=== PATIENT | female | born 1985 | race Caucasian/White ===

== ENCOUNTER 2018-06-04 10:03 | Emergency (ER) | payer MEDICAID, OTHER ==
[2018-06-04 11:52] LABS: BASO # 0.1 10^3/uL (0.0-0.2); BASO % 1.1 % (0.0-1.0); EOS # 0.2 10^3/uL (0.0-0.50); EOS % 2.6 % (0.0-3.0); HEMATOCRIT 38.7 % (36.0-47.0); HEMOGLOBIN 12.8 g/dl (12.0-15.5); IMMATURE GRANULOCYTE % 0.2 % (0-3.0); LYMPH # 3.6 10^3/uL (1.5-4.5); LYMPH % 38.2 % (24.0-44.0); MEAN CORPUSCULAR HEMOGLOBIN 30.3 pg (27.0-33.0); MEAN CORPUSCULAR HGB CONC 33.1 g/dl (32.0-36.5); MEAN CORPUSCULAR VOLUME 91.5 fl (80.0-96.0); MONO # 0.6 10^3/uL (0.0-0.8); MONO % 6.6 % (0.0-5.0); NEUTROPHILS # 4.8 10^3/uL (1.8-7.7); NEUTROPHILS % 51.3 % (36.0-66.0); PLATELET COUNT, AUTOMATED 221 10^3/uL (150-450); RED BLOOD COUNT 4.23 10^6/uL (4.00-5.40); RED CELL DISTRIBUTION WIDTH 14.4 % (11.5-14.5); WHITE BLOOD COUNT 9.3 10^3/uL (4.0-10.0)
[2018-06-04 12:13] LABS: CONTROL LINE HCG INT CTR LINE PRESENT; HCG, SERUM QUALITATIVE NEGATIVE (NEGATIVE)
[2018-06-04 12:26] LABS: ALBUMIN 4.2 GM/DL (3.2-5.2); ALBUMIN/GLOBULIN RATIO 1.24 (1.00-1.93); ALKALINE PHOSPHATASE 39 U/L (45-117); ALT/SGPT 70 U/L (12-78); ANION GAP 7 MEQ/L (8-16); AST/SGOT 52 U/L (7-37); BILIRUBIN,TOTAL 0.3 MG/DL (0.2-1.0); BLOOD UREA NITROGEN 13 MG/DL (7-18); CALCIUM LEVEL 9.9 MG/DL (8.5-10.1); CARBON DIOXIDE LEVEL 28 MEQ/L (21-32); CHLORIDE LEVEL 105 MEQ/L (98-107); CREATININE FOR GFR 1.03 MG/DL (0.55-1.30); GLOMERULAR FILTRATION RATE > 60.0 (>60); GLUCOSE, FASTING 96 MG/DL (70-100); POTASSIUM SERUM 4.2 MEQ/L (3.5-5.1); SODIUM LEVEL 140 MEQ/L (136-145); TOTAL PROTEIN 7.6 GM/DL (6.4-8.2)
[2018-06-04 12:57] LABS: HEPATITIS B SURFACE ANTIBODY POSITIVE (POSITIVE)
[2018-06-04 13:07] LABS: HEPATITIS B SURFACE ANTIGEN NEGATIVE (NEGATIVE)
[2018-06-04 13:35] LABS: HEPATITIS C VIRUS ABY INDEX 0.1 INDEX (<0.8)
[2018-06-04 13:36] LABS: HIV 1&2 SCREEN CENTAUR NEGATIVE (NEGATIVE)
[2018-06-04 14:07] LABS: CHLAMYDIA DNA AMPLIFICATION NEGATIVE (NEGATIVE); GC DNA AMPLIFICATION NEGATIVE (NEGATIVE)
[2018-06-04] MEDS: metroNIDAZOLE (FLAGYL) 500 MG TAB PO (14:44)
== END 2018-06-04 14:49 | disposition home or self-care (01) ==
LOC: M ED 10:03
DX: N76.0 Acute vaginitis (principal); F17.200 Nicotine dependence, unspecified, uncomplicated
CPT/HCPCS: 93970

== ENCOUNTER 2018-06-08 22:35 | Emergency (ER) | payer MEDICAID | END 2018-06-09 01:06 | disposition left against medical advice (07) | LOC: M ED 22:35 | DX: Z53.21 Procedure and treatment not carried out due to patient leaving prior to being seen by health care provider (principal) ==

== ENCOUNTER 2018-08-02 03:51 | Inpatient (IN) | payer MEDICAID ==
[2018-08-02 05:06] LABS: HEMOGLOBIN 13.6 g/dl (12.0-15.5); MEAN CORPUSCULAR HEMOGLOBIN 30.4 pg (27.0-33.0); MEAN CORPUSCULAR HGB CONC 33.2 g/dl (32.0-36.5); MEAN CORPUSCULAR VOLUME 91.5 fl (80.0-96.0); PLATELET COUNT, AUTOMATED 227 10^3/uL (150-450); RED BLOOD COUNT 4.48 10^6/uL (4.00-5.40); RED CELL DISTRIBUTION WIDTH 13.2 % (11.5-14.5); WHITE BLOOD COUNT 16.3 10^3/uL (4.0-10.0)
[2018-08-02 05:28] LABS: CONTROL LINE HCG INT CTR LINE PRESENT; HCG, SERUM QUALITATIVE NEGATIVE (NEGATIVE)
[2018-08-02 05:32] LABS: AMPHETAMINES LEVEL URINE NEGATIVE (NEGATIVE); BARBITURATES URINE NEGATIVE (NEGATIVE); BENZODIAZEPINES URINE NEGATIVE (NEGATIVE); CANNABINOIDS URINE NEGATIVE (NEGATIVE); COCAINE METABOLITE URINE NEGATIVE (NEGATIVE); METHADONE URINE NEGATIVE (NEGATIVE); OPIATES URINE NEGATIVE (NEGATIVE); PHENCYCLIDINE URINE NEGATIVE (NEGATIVE)
[2018-08-02 05:40] LABS: ACETAMINOPHEN LEVEL < 2.0 UG/ML (10.0-30.0); ALBUMIN 4.4 GM/DL (3.2-5.2); ALBUMIN/GLOBULIN RATIO 1.42 (1.00-1.93); ALKALINE PHOSPHATASE 46 U/L (45-117); ALT/SGPT 35 U/L (12-78); ANION GAP 6 MEQ/L (8-16); AST/SGOT 22 U/L (7-37); BILIRUBIN,DIRECT 0.1 MG/DL (0.0-0.2); BILIRUBIN,TOTAL 0.5 MG/DL (0.2-1.0); BLOOD UREA NITROGEN 14 MG/DL (7-18); CALCIUM LEVEL 9.3 MG/DL (8.5-10.1); CARBON DIOXIDE LEVEL 29 MEQ/L (21-32); CHLORIDE LEVEL 106 MEQ/L (98-107); CREATININE FOR GFR 1.04 MG/DL (0.55-1.30); ETHYL ALCOHOL (ETHANOL) < 0.003 % (0.000-0.010); GLOMERULAR FILTRATION RATE > 60.0 (>60); GLUCOSE, FASTING 85 MG/DL (70-100); POTASSIUM SERUM 4.1 MEQ/L (3.5-5.1); SALICYLATE LEVEL 3.8 MG/DL (5.0-30.0); SODIUM LEVEL 141 MEQ/L (136-145); TOTAL PROTEIN 7.5 GM/DL (6.4-8.2)
[2018-08-02 05:50] LABS: BASO # 0.1 10^3/uL (0.0-0.2); BASO % 0.6 % (0.0-1.0); EOS # 0.1 10^3/uL (0.0-0.50); EOS % 0.6 % (0.0-3.0); IMMATURE GRANULOCYTE # 0.1 10^3/uL (0-0); IMMATURE GRANULOCYTE % 0.4 % (0-3.0); LYMPH # 2.7 10^3/uL (1.5-4.5); LYMPH % 16.6 % (24.0-44.0); MONO # 1.2 10^3/uL (0.0-0.8); MONO % 7.1 % (0.0-5.0); NEUTROPHILS # 12.4 10^3/uL (1.8-7.7); NEUTROPHILS % 74.7 % (36.0-66.0)
[2018-08-02 05:59] LABS: APPEARANCE, URINE CLEAR (CLEAR); BACTERIA, URINE AUTO 1+ (NEGATIVE); BILIRUBIN, URINE AUTO NEGATIVE (NEGATIVE); BLOOD, URINE BLOOD NEGATIVE (NEGATIVE); COLOR, URINE STRAW (YELLOW); GLUCOSE, URINE (UA) AUTO NEGATIVE (NEGATIVE); KETONE, URINE AUTO NEGATIVE (NEGATIVE); LEUKOCYTE ESTERASE, URINE AUTO NEGATIVE (NEGATIVE); NITRITE, URINE AUTO NEGATIVE (NEGATIVE); PROTEIN, URINE AUTO NEGATIVE (NEGATIVE); RBC, URINE AUTO 1 /HPF (0-3); SPECIFIC GRAVITY URINE AUTO 1.002 (1.002-1.035); SQUAMOUS EPITHELIAL CELL UR AU 1 /HPF (0-6); UROBILINOGEN, URINE AUTO 0.2 mg/dL (0.0-2.0); WBC, URINE AUTO 1 /HPF (0-3)
[2018-08-02 06:16] LABS: CONTROL LINE MONO INT CTR LINE PRESENT; MONO SCRN NEGATIVE (NEGATIVE)
[2018-08-02] MEDS: PALIPERIDONE 3 MG ER TAB (INVEGA) PO ×2 (09:00→21:00)
[2018-08-02] MEDS: NICOTINE 21MG/24HR 1 EA TRANSDERMAL TD (10:44)
[2018-08-02] MEDS ORDERED: ACETAMINOPHEN TAB 650MG DOSE (2X325MG) PO (14:00)
[2018-08-02] MEDS ORDERED: MOM 30ML SUSPENSION UDC PO (14:00)
[2018-08-02] MEDS ORDERED: MAALOX 30 ML SUSP *UDC PO (14:00)
[2018-08-02] MEDS: hydrOXYzine 50 MG TAB PO (18:20)
[2018-08-02] MEDS: OLANZapine ORAL DISINTEGRATING TAB 5MG PO (18:23)
[2018-08-03] MEDS: PALIPERIDONE 3 MG ER TAB (INVEGA) PO ×2 (09:28→20:15)
[2018-08-03] MEDS: NICOTINE 21MG/24HR 1 EA TRANSDERMAL TD (09:28)
[2018-08-03] MEDS: hydrOXYzine 50 MG TAB PO (11:13)
[2018-08-03] MEDS: OLANZapine ORAL DISINTEGRATING TAB 5MG PO ×3 (11:49→20:30)
[2018-08-03] MEDS: traZODone 100 MG TAB PO (20:08)
[2018-08-03] MEDS: PRAZOSIN 1 MG CAP PO (20:11)
[2018-08-03] MEDS: hydrOXYzine 25 MG TAB PO (20:12)
[2018-08-03] MEDS: traZODone 50 MG TAB PO (23:34)
[2018-08-04] MEDS: PALIPERIDONE 3 MG ER TAB (INVEGA) PO (09:45)
[2018-08-04] MEDS: NICOTINE 21MG/24HR 1 EA TRANSDERMAL TD (09:45)
[2018-08-04] MEDS ORDERED: diphenhydrAMINE 50 MG CAP PO (11:15)
[2018-08-04] MEDS: PRAZOSIN 1 MG CAP PO (20:22)
[2018-08-04] MEDS: PALIPERIDONE 6 MG ER TAB (INVEGA) PO (20:22)
[2018-08-05 08:24] LABS: HEMATOCRIT 40.8 % (36.0-47.0); HEMOGLOBIN 13.1 g/dl (12.0-15.5); MEAN CORPUSCULAR HEMOGLOBIN 30.2 pg (27.0-33.0); MEAN CORPUSCULAR HGB CONC 32.1 g/dl (32.0-36.5); PLATELET COUNT, AUTOMATED 204 10^3/uL (150-450); RED BLOOD COUNT 4.34 10^6/uL (4.00-5.40); WHITE BLOOD COUNT 8.4 10^3/uL (4.0-10.0)
[2018-08-05] MEDS: PALIPERIDONE 3 MG ER TAB (INVEGA) PO (09:51)
[2018-08-05] MEDS: NICOTINE 21MG/24HR 1 EA TRANSDERMAL TD (09:51)
[2018-08-05] MEDS: PALIPERIDONE 6 MG ER TAB (INVEGA) PO (20:41)
[2018-08-05] MEDS: PRAZOSIN 1 MG CAP PO (20:42)
[2018-08-06] MEDS: NICOTINE 21MG/24HR 1 EA TRANSDERMAL TD (08:58)
[2018-08-06] MEDS: PALIPERIDONE 3 MG ER TAB (INVEGA) PO (08:58)
== END 2018-08-06 13:45 | disposition home or self-care (01) | DRG 750 ==
LOC: M ED 03:51 → M ED INP 14:05 → M PSY 15:19
DX: F25.0 Schizoaffective disorder, bipolar type (principal); Z91.14 Patient's other noncompliance with medication regimen; F17.210 Nicotine dependence, cigarettes, uncomplicated; F43.10 Post-traumatic stress disorder, unspecified; Z91.5 Personal history of self-harm; Z88.8 Allergy status to other drugs, medicaments and biological substances; Z79.899 Other long term (current) drug therapy; Z98.51 Tubal ligation status

== ENCOUNTER 2018-08-31 16:41 | Inpatient (IN) | payer MEDICAID ==
[2018-08-31 18:03] LABS: HEMATOCRIT 39.9 % (36.0-47.0); HEMOGLOBIN 13.1 g/dl (12.0-15.5); MEAN CORPUSCULAR HGB CONC 32.8 g/dl (32.0-36.5); MEAN CORPUSCULAR VOLUME 91.3 fl (80.0-96.0); PLATELET COUNT, AUTOMATED 225 10^3/uL (150-450); RED BLOOD COUNT 4.37 10^6/uL (4.00-5.40); RED CELL DISTRIBUTION WIDTH 12.9 % (11.5-14.5); WHITE BLOOD COUNT 9.4 10^3/uL (4.0-10.0)
[2018-08-31 18:23] LABS: AMPHETAMINES LEVEL URINE NEGATIVE (NEGATIVE); BARBITURATES URINE NEGATIVE (NEGATIVE); BENZODIAZEPINES URINE NEGATIVE (NEGATIVE); CANNABINOIDS URINE NEGATIVE (NEGATIVE); COCAINE METABOLITE URINE NEGATIVE (NEGATIVE); METHADONE URINE NEGATIVE (NEGATIVE); OPIATES URINE NEGATIVE (NEGATIVE); PHENCYCLIDINE URINE NEGATIVE (NEGATIVE)
[2018-08-31 18:24] LABS: CONTROL LINE HCG INT CTR LINE PRESENT; HCG, SERUM QUALITATIVE NEGATIVE (NEGATIVE)
[2018-08-31 18:32] LABS: ACETAMINOPHEN LEVEL < 2.0 UG/ML (10.0-30.0); ALBUMIN/GLOBULIN RATIO 1.29 (1.00-1.93); ALKALINE PHOSPHATASE 38 U/L (45-117); ALT/SGPT 29 U/L (12-78); ANION GAP 6 MEQ/L (8-16); AST/SGOT 10 U/L (7-37); BILIRUBIN,DIRECT < 0.1 MG/DL (0.0-0.2); BILIRUBIN,TOTAL 0.4 MG/DL (0.2-1.0); BLOOD UREA NITROGEN 12 MG/DL (7-18); CALCIUM LEVEL 8.7 MG/DL (8.5-10.1); CARBON DIOXIDE LEVEL 27 MEQ/L (21-32); CHLORIDE LEVEL 107 MEQ/L (98-107); CREATININE FOR GFR 0.94 MG/DL (0.55-1.30); ETHYL ALCOHOL (ETHANOL) < 0.003 % (0.000-0.010); GLOMERULAR FILTRATION RATE > 60.0 (>60); GLUCOSE, FASTING 85 MG/DL (70-100); SALICYLATE LEVEL < 1.7 MG/DL (5.0-30.0); SODIUM LEVEL 140 MEQ/L (136-145); TOTAL PROTEIN 7.1 GM/DL (6.4-8.2)
[2018-08-31] MEDS ORDERED: OLANZapine 10 MG TAB PO (20:15)
[2018-08-31] MEDS ORDERED: traZODone 50 MG TAB PO (20:15)
[2018-08-31] MEDS ORDERED: MOM 30ML SUSPENSION UDC PO (20:15)
[2018-08-31] MEDS ORDERED: LORazepam 2 MG TAB PO (20:15)
[2018-08-31] MEDS ORDERED: MAALOX 30 ML SUSP *UDC PO (20:15)
[2018-08-31] MEDS ORDERED: ACETAMINOPHEN TAB 650MG DOSE (2X325MG) PO (20:15)
[2018-09-01] MEDS: NICOTINE 21MG/24HR 1 EA TRANSDERMAL TD (08:33)
[2018-09-01] MEDS: NICOTINE POLACRILEX 2 MG GUM PO ×3 (16:29→20:49)
[2018-09-01] MEDS: PALIPERIDONE 3 MG ER TAB (INVEGA) PO (20:49)
[2018-09-01] MEDS: diphenhydrAMINE 25 MG CAP PO (20:54)
[2018-09-02] MEDS: PALIPERIDONE 3 MG ER TAB (INVEGA) PO ×2 (08:30→20:26)
[2018-09-02] MEDS: NICOTINE POLACRILEX 2 MG GUM PO ×5 (08:31→20:25)
[2018-09-02] MEDS: diphenhydrAMINE 50 MG CAP PO (20:24)
[2018-09-02] MEDS ORDERED: LANOLIN HYDROUS OINT 30GM TUBE TOP (21:00)
[2018-09-03] MEDS: PALIPERIDONE 3 MG ER TAB (INVEGA) PO ×2 (08:51→21:00)
[2018-09-03] MEDS: NICOTINE POLACRILEX 2 MG GUM PO ×5 (08:54→22:29)
[2018-09-04] MEDS: NICOTINE POLACRILEX 2 MG GUM PO ×7 (00:30→23:42)
[2018-09-04] MEDS: PALIPERIDONE 3 MG ER TAB (INVEGA) PO ×2 (08:58→20:44)
[2018-09-05] MEDS: PALIPERIDONE 3 MG ER TAB (INVEGA) PO ×2 (08:20→20:12)
[2018-09-05] MEDS: NICOTINE POLACRILEX 2 MG GUM PO ×5 (09:07→22:52)
[2018-09-06] MEDS: NICOTINE POLACRILEX 2 MG GUM PO ×7 (01:04→21:44)
[2018-09-06] MEDS: PALIPERIDONE 3 MG ER TAB (INVEGA) PO (09:00)
[2018-09-06] MEDS: risperiDONE 3 MG TAB PO ×2 (11:28→21:00)
[2018-09-07] MEDS: NICOTINE POLACRILEX 2 MG GUM PO ×2 (09:16→11:31)
[2018-09-07] MEDS: risperiDONE 3 MG TAB PO (09:16)
== END 2018-09-07 12:45 | disposition home or self-care (01) | DRG 750 ==
LOC: M ED 16:41 → M ED INP 20:07 → M PSY 21:03
DX: F25.9 Schizoaffective disorder, unspecified (principal); Z88.8 Allergy status to other drugs, medicaments and biological substances; Z87.891 Personal history of nicotine dependence; Z98.51 Tubal ligation status

== ENCOUNTER 2019-03-10 12:54 | Emergency (ER) | payer MEDICAID ==
[~2019-03-10] VITALS: Ht 162.6 cm; Wt 72.7 kg
[~2019-03-10 12:54] MED LIST: DIPH50CA PO; FLAG500T PO; MINI1CAP PO; NICO21PAT TD; NICO21PAT TOP; PALI1TAB2 PO; PALI1TAB3 PO; PATIENT COMMENTS; PRAZ1CAP PO; RISP25INJ IM; RISP3TAB20 PO; TRAZ1TAB10 PO
[2019-03-10] MEDS ORDERED: KLON0.5T PO (13:30)
[2019-03-10] MEDS ORDERED: COLA100C5 PO (13:30)
[2019-03-10] MEDS ORDERED: FLUP25VL IM (13:30)
[2019-03-10] MEDS ORDERED: RISP2TAB32 (13:30)
[2019-03-10 14:05] VITALS: BP 111/64
== END 2019-03-10 14:06 | disposition home or self-care (01) ==
LOC: M ED 12:54
DX: Z76.0 Encounter for issue of repeat prescription (principal); F29 Unspecified psychosis not due to a substance or known physiological condition; F41.9 Anxiety disorder, unspecified; F32.9 Major depressive disorder, single episode, unspecified; F25.9 Schizoaffective disorder, unspecified; F17.200 Nicotine dependence, unspecified, uncomplicated; Z88.8 Allergy status to other drugs, medicaments and biological substances; Z79.899 Other long term (current) drug therapy

== ENCOUNTER 2019-07-06 18:52 | Emergency (ER) | payer MEDICAID ==
[~2019-07-06] VITALS: Ht 162.6 cm; Wt 70.0 kg
[~2019-07-06 18:52] MED LIST changes: +COLA100C5 PO; +FLUP25VL IM; +KLON0.5T PO; +RISP2TAB32
[2019-07-06] MEDS ORDERED: WELLTAB40 PO (19:03)
[2019-07-06 19:34] LABS: HEMATOCRIT 37.9 % (36.0-47.0); HEMOGLOBIN 12.9 g/dl (12.0-15.5); MEAN CORPUSCULAR VOLUME 91.1 fl (80.0-96.0); PLATELET COUNT, AUTOMATED 237 10^3/uL (150-450); RED BLOOD COUNT 4.16 10^6/uL (4.00-5.40)
[2019-07-06] MEDS ORDERED: risperiDONE 3 MG TAB PO ONE (19:45)
[2019-07-06 19:50] LABS: AMPHETAMINES LEVEL URINE NEGATIVE (NEGATIVE); BARBITURATES URINE NEGATIVE (NEGATIVE); BENZODIAZEPINES URINE NEGATIVE (NEGATIVE); CANNABINOIDS URINE NEGATIVE (NEGATIVE); COCAINE METABOLITE URINE NEGATIVE (NEGATIVE); METHADONE URINE NEGATIVE (NEGATIVE); OPIATES URINE NEGATIVE (NEGATIVE); PHENCYCLIDINE URINE NEGATIVE (NEGATIVE)
[2019-07-06 19:55] LABS: HCG, SERUM QUALITATIVE NEGATIVE (NEGATIVE)
[2019-07-06 20:00] LABS: ACETAMINOPHEN LEVEL < 2.0 UG/ML (10.0-30.0); ALBUMIN 4.1 GM/DL (3.2-5.2); ALT/SGPT 24 U/L (12-78); BILIRUBIN,DIRECT 0.2 MG/DL (0.0-0.2); BILIRUBIN,TOTAL 0.7 MG/DL (0.2-1.0); BLOOD UREA NITROGEN 6 MG/DL (7-18); CALCIUM LEVEL 9.5 MG/DL (8.5-10.1); CARBON DIOXIDE LEVEL 26 MEQ/L (21-32); CHLORIDE LEVEL 107 MEQ/L (98-107); CREATININE FOR GFR 0.96 MG/DL (0.55-1.30); ETHYL ALCOHOL (ETHANOL) < 0.003 % (0.000-0.010); GLOMERULAR FILTRATION RATE > 60.0 (>60); GLUCOSE, FASTING 91 MG/DL (70-100); POTASSIUM SERUM 3.8 MEQ/L (3.5-5.1); SALICYLATE LEVEL 5.2 MG/DL (5.0-30.0); SODIUM LEVEL 139 MEQ/L (136-145); TOTAL PROTEIN 6.8 GM/DL (6.4-8.2)
[2019-07-06 23:57] VITALS: BP 139/69
--- NOTE | 2019-07-07 00:17 | ECGEPIP ---
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
== END 2019-07-07 00:05 ==
LOC: M ED 18:52
DX: F23 Brief psychotic disorder (principal); F25.0 Schizoaffective disorder, bipolar type; F43.10 Post-traumatic stress disorder, unspecified; Z88.8 Allergy status to other drugs, medicaments and biological substances; Z79.899 Other long term (current) drug therapy
CPT/HCPCS: 36415; 80048; 80076; 80307; 84443; 84703; 85027; 93005; 99285; G0480

== ENCOUNTER 2019-08-12 16:17 | Inpatient (IN) | payer MEDICAID, SELFPAY ==
[~2019-08-12] VITALS: Ht 162.6 cm; Wt 68.5 kg
[~2019-08-12 16:17] MED LIST changes: +WELLTAB40 PO
[2019-08-12 18:04] LABS: HEMATOCRIT 42.3 % (36.0-47.0); HEMOGLOBIN 13.3 g/dl (12.0-15.5); MEAN CORPUSCULAR HGB CONC 31.4 g/dl (32.0-36.5); MEAN CORPUSCULAR VOLUME 95.5 fl (80.0-96.0); PLATELET COUNT, AUTOMATED 200 10^3/uL (150-450); RED BLOOD COUNT 4.43 10^6/uL (4.00-5.40); WHITE BLOOD COUNT 11.1 10^3/uL (4.0-10.0)
[2019-08-12 18:08] LABS: HCG, SERUM QUALITATIVE NEGATIVE (NEGATIVE)
[2019-08-12 18:18] LABS: ACETAMINOPHEN LEVEL < 2.0 UG/ML (10.0-30.0); ALBUMIN 4.1 GM/DL (3.2-5.2); ALT/SGPT 27 U/L (12-78); BILIRUBIN,DIRECT 0.1 MG/DL (0.0-0.2); BILIRUBIN,TOTAL 0.5 MG/DL (0.2-1.0); BLOOD UREA NITROGEN 12 MG/DL (7-18); CALCIUM LEVEL 9.7 MG/DL (8.5-10.1); CARBON DIOXIDE LEVEL 29 MEQ/L (21-32); CHLORIDE LEVEL 105 MEQ/L (98-107); CREATININE FOR GFR 1.07 MG/DL (0.55-1.30); ETHYL ALCOHOL (ETHANOL) < 0.003 % (0.000-0.010); GLOMERULAR FILTRATION RATE > 60.0 (>60); GLUCOSE, FASTING 79 MG/DL (70-100); POTASSIUM SERUM 3.8 MEQ/L (3.5-5.1); SODIUM LEVEL 139 MEQ/L (136-145); TOTAL PROTEIN 7.1 GM/DL (6.4-8.2)
[2019-08-12 18:25] LABS: AMPHETAMINES LEVEL URINE NEGATIVE (NEGATIVE); BARBITURATES URINE NEGATIVE (NEGATIVE); BENZODIAZEPINES URINE NEGATIVE (NEGATIVE); CANNABINOIDS URINE NEGATIVE (NEGATIVE); COCAINE METABOLITE URINE NEGATIVE (NEGATIVE); METHADONE URINE NEGATIVE (NEGATIVE); OPIATES URINE NEGATIVE (NEGATIVE); PHENCYCLIDINE URINE NEGATIVE (NEGATIVE)
[2019-08-12] MEDS ORDERED: traZODone 50 MG TAB PO PRN (19:15)
[2019-08-12] MEDS ORDERED: OLANZapine ORAL DISINTEGRATING TAB 5MG PO PRN (19:15)
[2019-08-12] MEDS ORDERED: MOM 30ML SUSPENSION UDC PO PRN (19:15)
[2019-08-12] MEDS ORDERED: MAALOX 30 ML SUSP *UDC PO PRN (19:15)
[2019-08-12] MEDS ORDERED: ACETAMINOPHEN TAB 650MG DOSE (2X325MG) PO PRN (19:15)
[2019-08-12] MEDS: PALIPERIDONE 3 MG ER TAB (INVEGA) PO SCH (20:47)
[2019-08-12 21:05] VITALS: BP 128/66
[2019-08-12] MEDS ORDERED: NICOTINE 21MG/24HR 1 EA TRANSDERMAL TD PRN (22:30)
[2019-08-13 07:00] VITALS: BP 94/48
[2019-08-13] MEDS: PALIPERIDONE 3 MG ER TAB (INVEGA) PO SCH (08:10)
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
[2019-08-13] MEDS: NICOTINE POLACRILEX 2 MG GUM PO PRN ×6 (09:01→20:48)
[2019-08-13 16:12] VITALS: BP 119/71
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
[2019-08-13] MEDS: PALIPERIDONE 6 MG ER TAB (INVEGA) PO SCH (20:28)
[2019-08-14 06:43] VITALS: BP 123/71
[2019-08-14] MEDS: NICOTINE POLACRILEX 2 MG GUM PO PRN ×6 (06:50→20:12)
[2019-08-14] MEDS: PALIPERIDONE 3 MG ER TAB (INVEGA) PO SCH (08:17)
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
[2019-08-14] MEDS: PALIPERIDONE 6 MG ER TAB (INVEGA) PO SCH (20:11)
[2019-08-15 06:32] VITALS: BP 114/66
[2019-08-15] MEDS: NICOTINE POLACRILEX 2 MG GUM PO PRN ×5 (07:23→19:33)
[2019-08-15] MEDS: PALIPERIDONE 3 MG ER TAB (INVEGA) PO SCH (08:16)
--- NOTE | 2019-08-15 10:14 | MHIPNPDOC ---
[facility] Progress Note Progress Note Jessica Del Rio Inpatient Progress Note Jessica Del Rio Select Gender MRN: N/A Date of : MM/DD/YYYY Date of Service: 08/15/2019 History of Present Illness The patient a 33-year-old woman with a history of schizoaffective disorder presents psychotic, confused and unable to care for herself due to her severe delusions and hypersexuality. Interval History The patient is attempted to be met with today, however, she is too distorted and unable to engage in any meaningful interview. She appears to focus on discharge, but is responding to unseen others, acting bizarre and focusing on various sexual topics. She has had no major behavioral problems over the weekend, but has remained isolative and unable to engage in any meaningful interview with the previous provider. Review Of Systems Unable to determine due to patient's mental status. Psychotherapy None on this visit. Vital Signs Reviewed. Mental Status Examination General: Fair hygiene Speech: Pressured Thought processes: Tangential MSK: Smooth and coordinated gait, no signs of tremors or involuntary orofacial movements Thought content: Bizarre and paranoid Abstract reasoning, and computation: Impaired Description of associations: Impaired Description of abnormal or psychotic thoughts: Denies suicidal or homicidal ideation Judgment: Impaired Insight: Impaired Orientation: Alert and orientated 3 Cognition: Grossly normal Recent and remote memory: Intact Attention span and concentration: Impaired secondary to thought process Fund of knowledge: Adequate Mood: "Okay" Affect: Flat with a constricted range Diagnoses Schizoaffective disorder, current episode manic? Assessment and Plan Schizoaffective disorder: Continue Invega 6 mg nightly, 3 mg daily. Disposition Patient will need a longer inpatient admission due to her severe psychosis and disability, putting herself at risk of imminent harm as well as others. Time Spent 10 minutes [id number]. Vital Signs Vital Signs Date Time Temp Pulse Resp B/P (MAP) Pulse Ox O2 Delivery O2 Flow Rate FiO2 08/15/19 06:32 99.1 60 16 114/66 (82) 08/14/19 06:43 Room Air 08/12/19 21:05 99 Current Medications Current Medications Medications (Trade) Dose Ordered Sig/Fredis Route PRN Reason Start Time Stop Time Status Last Admin Dose Admin Acetaminophen (Tylenol Tab) 650 mg Q6HP PRN PO HEADACHE or DISCOMFORT 08/12/19 19:15 Al Hydrox/Mg Hydrox/Simethicone (Mylanta) 30 ml Q4HP PRN PO HEARTBURN/INDIGESTION 08/12/19 19:15 Home Med (Med Rec Complete!) ASDIRECTED XX 08/12/19 20:15 08/12/19 20:17 DC Magnesium Hydroxide (Milk Of Magnesia) 30 ml DAILYPRN PRN PO CONSTIPATION 08/12/19 19:15 Nicotine (Nicoderm Cq 21mg) 1 patch DAILYPRN PRN TD NICOTINE WITHDRAWAL 08/12/19 22:30 08/13/19 08:45 DC 08/13/19 08:12 Nicotine (Nicorette) 2 mg Q2HP PRN PO SMOKING CESSATION 08/13/19 08:45 08/15/19 09:57 Olanzapine (ZyPREXA ZYDIS) 5 mg Q6HP PRN PO ANXIETY/AGITATION 08/12/19 19:15 Paliperidone (Invega) 3 mg BID PO 08/12/19 21:00 08/13/19 14:07 DC 08/13/19 08:10 Paliperidone (Invega) 3 mg QAM PO 08/14/19 09:00 08/15/19 08:16 Paliperidone (Invega) 6 mg QHS PO 08/13/19 21:00 08/14/19 20:11 Trazodone HCl (Desyrel) 50 mg QHSP PRN PO INSOMNIA 08/12/19 19:15 Allergies Coded Allergies: haloperidol (Verified Allergy, Unknown, 07/06/19) TAMMY STARKEY DO Aug 15, 2019 10:14
[2019-08-15 16:25] VITALS: BP 121/69
[2019-08-15] MEDS: PALIPERIDONE 6 MG ER TAB (INVEGA) PO SCH (23:07)
[2019-08-16 06:34] VITALS: BP 98/53
[2019-08-16] MEDS: PALIPERIDONE 3 MG ER TAB (INVEGA) PO SCH ×2 (08:28→21:45)
[2019-08-16] MEDS: NICOTINE POLACRILEX 2 MG GUM PO PRN ×5 (08:30→21:47)
--- NOTE | 2019-08-16 10:17 | MHIPNPDOC ---
[facility] Progress Note Progress Note Jessica Del Rio Inpatient Progress Note Jessica Del Rio Select Gender MRN: N/A Date of : MM/DD/YYYY Date of Service: 08/16/2019 History of Present Illness The patient, a 33-year-old woman with a history of schizo-affective disorder, presents psychotic, confused, and unable to care for herself due to her severe delusions and hypersexuality. Interval History The patient was met wet today with landscape architect and planner, Diann. The patient reportedly is still quite psychotic. She does continue to request discharge, however shortly after stating "I'm not a danger to myself or others," she goes on a long discussion about demons, angels, and other supernatural phenomenon that she reports are plaguing her. She responds to internal stimuli multiple times during the interview. She, after discussion, does agree to continue to take medications and for an increase. She reports that she has difficulties with various people being "out to get her" and a number of other paranoid phenomenon. She has had no major behavioral problems overnight and has been fairly compliant, although extremely psychotic. She is generally unable to care for herself without prompting on the unit. Review Of Systems Denies any side effects from medications such as dizziness, tummy upset, chest pain, or palpitations. She additionally and denies any muscle tightness or stiffness. Psychotherapy None on this visit. Vital Signs Reviewed. Mental Status Examination General: Fair hygiene Speech: Pressured Thought processes: Tangential MSK: Smooth and coordinated gait, no signs of tremors or involuntary orofacial movements Thought content: Bizarre and paranoid Abstract reasoning, and computation: Impaired Description of associations: Impaired Description of abnormal or psychotic thoughts: Denies suicidal or homicidal ideation Judgment: Impaired Insight: Impaired Orientation: Alert and orientated 3 Cognition: Grossly normal Recent and remote memory: Intact Attention span and concentration: Impaired secondary to thought process Fund of knowledge: Adequate Mood: "Okay" Affect: Flat with a constricted range Diagnoses Schizo-affective disorder, current episode manic ?. Assessment and Plan Schizo-affective disorder: Continue Invega 9 mg nightly, will consider mood stabilizer. Disposition The patient will need a longer admission to treat her extreme psychosis that puts her at risk of self harm due to disability. Time Spent 20 minutes [id number]. Vital Signs Vital Signs Date Time Temp Pulse Resp B/P (MAP) Pulse Ox O2 Delivery O2 Flow Rate FiO2 08/16/19 06:34 98.5 68 12 98/53 (68) 08/15/19 16:25 100 08/14/19 06:43 Room Air Current Medications Current Medications Medications (Trade) Dose Ordered Sig/Fredis Route PRN Reason Start Time Stop Time Status Last Admin Dose Admin Acetaminophen (Tylenol Tab) 650 mg Q6HP PRN PO HEADACHE or DISCOMFORT 08/12/19 19:15 Al Hydrox/Mg Hydrox/Simethicone (Mylanta) 30 ml Q4HP PRN PO HEARTBURN/INDIGESTION 08/12/19 19:15 Home Med (Med Rec Complete!) ASDIRECTED XX 08/12/19 20:15 08/12/19 20:17 DC Magnesium Hydroxide (Milk Of Magnesia) 30 ml DAILYPRN PRN PO CONSTIPATION 08/12/19 19:15 Nicotine (Nicoderm Cq 21mg) 1 patch DAILYPRN PRN TD NICOTINE WITHDRAWAL 08/12/19 22:30 08/13/19 08:45 DC 08/13/19 08:12 Nicotine (Nicorette) 2 mg Q2HP PRN PO SMOKING CESSATION 08/13/19 08:45 08/16/19 08:30 Olanzapine (ZyPREXA ZYDIS) 5 mg Q6HP PRN PO ANXIETY/AGITATION 08/12/19 19:15 Paliperidone (Invega) 3 mg BID PO 08/12/19 21:00 08/13/19 14:07 DC 08/13/19 08:10 Paliperidone (Invega) 3 mg QAM PO 08/14/19 09:00 08/16/19 08:28 Paliperidone (Invega) 6 mg QHS PO 08/13/19 21:00 08/15/19 23:07 Trazodone HCl (Desyrel) 50 mg QHSP PRN PO INSOMNIA 08/12/19 19:15 Allergies Coded Allergies: haloperidol (Verified Allergy, Unknown, 07/06/19) TAMMY STARKEY DO Aug 16, 2019 10:17
[2019-08-16] MEDS ORDERED: PALIPERIDONE 6 MG ER TAB (INVEGA) PO SCH (21:00)
[2019-08-17 06:46] VITALS: BP 106/54
[2019-08-17] MEDS: NICOTINE POLACRILEX 2 MG GUM PO PRN ×5 (08:55→21:03)
[2019-08-17] MEDS ORDERED: DIVALPROEX 250MG *ER* TAB PO SCH (09:00)
--- NOTE | 2019-08-17 10:14 | MHIPNPDOC ---
[facility] Progress Note Progress Note Inpatient Progress Note Jessica Del Rio MRN: N/A Date of : N/A Date of Service: 08/17/2019 History of Present Illness The patient, a 33-year-old woman with a history of schizo-affective disorder, presents psychotic, confused, and unable to care for herself due to her severe delusions and hypersexuality. Interval History The patient is met with today. She reports that she is still plagued by "Tao." She still remains distorted and stays in her room. She was fairly upset with the idea of being placed on Depakote previously. She still remains fairly distorted. She is met with a professor of communication and writing as she is hypersexual and obsessed with various sexual topics. The patient has been interacting more fluently and become less isolative and bizarre. She still reports that she has got significant delusional thinking, although at times, she will try to claim that she is "fine." She has had no major behavioral problems, but still remains distorted, unable to care for herself. Review Of Systems Denies any side effects from medications such as dizziness, tummy upset, chest pain, or palpitations. She additionally and denies any muscle tightness or stiffness. Psychotherapy None on this visit. Vital Signs Reviewed. Mental Status Examination General: Fair hygiene Speech: Pressured Thought processes: Tangential MSK: Smooth and coordinated gait, no signs of tremors or involuntary orofacial movements Thought content: Bizarre and paranoid Abstract reasoning, and computation: Impaired Description of associations: Impaired Description of abnormal or psychotic thoughts: Denies suicidal or homicidal ideation Judgment: Impaired Insight: Impaired Orientation: Alert and orientated 3 Cognition: Grossly normal Recent and remote memory: Intact Attention span and concentration: Impaired secondary to thought process Fund of knowledge: Adequate Mood: "Okay" Affect: Flat with a constricted range Diagnoses Schizo-affective disorder, current episode manic ?. Assessment and Plan Schizo-affective disorder: Continue Invega 9 mg nightly. Will start Abilify 5 mg nightly. Discussed risks, benefits, and potential side effects with patient, ideal as augmentation regimen as she has tried more than 3 antipsychotics in her treatment and both come in an injectable form. Disposition The patient will need a further inpatient admission in order to treat her severe psychosis that impairs her ability to care for herself putting her in danger of self-harm. Time Spent 15 minutes [id number]. Thursday Vital Signs Vital Signs Date Time Temp Pulse Resp B/P (MAP) Pulse Ox O2 Delivery O2 Flow Rate FiO2 08/17/19 06:46 98.3 55 12 106/54 (71) 08/15/19 16:25 100 08/14/19 06:43 Room Air Current Medications Current Medications Medications (Trade) Dose Ordered Sig/Fredis Route PRN Reason Start Time Stop Time Status Last Admin Dose Admin Acetaminophen (Tylenol Tab) 650 mg Q6HP PRN PO HEADACHE or DISCOMFORT 08/12/19 19:15 Al Hydrox/Mg Hydrox/Simethicone (Mylanta) 30 ml Q4HP PRN PO HEARTBURN/INDIGESTION 08/12/19 19:15 Home Med (Med Rec Complete!) ASDIRECTED XX 08/12/19 20:15 08/12/19 20:17 DC Magnesium Hydroxide (Milk Of Magnesia) 30 ml DAILYPRN PRN PO CONSTIPATION 08/12/19 19:15 Nicotine (Nicoderm Cq 21mg) 1 patch DAILYPRN PRN TD NICOTINE WITHDRAWAL 08/12/19 22:30 08/13/19 08:45 DC 08/13/19 08:12 Nicotine (Nicorette) 2 mg Q2HP PRN PO SMOKING CESSATION 08/13/19 08:45 08/17/19 08:55 Olanzapine (ZyPREXA ZYDIS) 5 mg Q6HP PRN PO ANXIETY/AGITATION 08/12/19 19:15 Paliperidone (Invega) 3 mg BID PO 08/12/19 21:00 08/13/19 14:07 DC 08/13/19 08:10 Paliperidone (Invega) 3 mg QAM PO 08/14/19 09:00 08/16/19 10:59 DC 08/16/19 08:28 Paliperidone (Invega) 6 mg QHS PO 08/13/19 21:00 08/16/19 10:59 DC 08/15/19 23:07 Paliperidone (Invega) 9 mg QHS PO 08/16/19 21:00 08/16/19 21:22 DC Paliperidone (Invega) 9 mg QHS PO 08/16/19 21:00 08/16/19 21:45 Trazodone HCl (Desyrel) 50 mg QHSP PRN PO INSOMNIA 08/12/19 19:15 Allergies Coded Allergies: haloperidol (Verified Allergy, Unknown, 07/06/19) TAMMY STARKEY DO Aug 17, 2019 10:14
[2019-08-17] MEDS: PALIPERIDONE 3 MG ER TAB (INVEGA) PO SCH (21:03)
[2019-08-18 06:34] VITALS: BP 93/52
[2019-08-18] MEDS: NICOTINE POLACRILEX 2 MG GUM PO PRN ×5 (08:28→23:22)
--- NOTE | 2019-08-18 16:36 | MHIPNPDOC ---
[facility] Progress Note Progress Note Inpatient Progress Note Jessica Del Rio MRN: N/A Date of : N/A Date of Service: 08/18/2019 History of Present Illness The patient, a 33-year-old woman with a history of schizo-affective disorder, presents psychotic, confused, and unable to care for herself due to her severe delusions and hypersexuality. Interval History The patient is met with today. She is doing better. She does report still some delusional thoughts, but reports that the "voices" have been resolving. She has been much more engaged, less bizarre and has not had any notable hypersexuality. She reports she is feeling better on the medication and feels that it stabilizes her mood. She feels much more "happy" and not as sad and dysphoric as she had been before. She reports no problems overnight. Nursing staff report she has been doing better, more able to interact with and has not been demonstrating any dangerous behavior. Review Of Systems Denies any side effects from medications such as dizziness, tummy upset, chest pain, or palpitations. She additionally and denies any muscle tightness or stiffness. Psychotherapy None on this visit. Vital Signs Reviewed. Mental Status Examination General: Fair hygiene Speech: Pressured Thought processes: More linear MSK: Smooth and coordinated gait, no signs of tremors or involuntary orofacial movements Thought content: Less paranoid and bizarre Abstract reasoning, and computation: Improved Description of associations: Improved Description of abnormal or psychotic thoughts: Denies suicidal or homicidal ideation Judgment: Improved Insight: Improved Orientation: Alert and orientated 3 Cognition: Grossly normal Recent and remote memory: Intact Attention span and concentration: Intact Fund of knowledge: Adequate Mood: "Okay" Affect: More reactive with less of a flat range Diagnoses Schizo-affective disorder, current episode manic ?. Assessment and Plan Schizo-affective disorder: Continue Invega 9 mg nightly. Will increase Abilify to 10 mg nightly. Discussed with patient the combination effect as well as the nature of the treatment ideally being 2 injectables. Disposition Possible discharge this Thursday if she continues to improve. Will attempt to get injectables completed tomorrow to ensure stability. Time Spent 15 minutes [id number]. Vital Signs Vital Signs Date Time Temp Pulse Resp B/P (MAP) Pulse Ox O2 Delivery O2 Flow Rate FiO2 08/18/19 06:34 98.1 69 12 93/52 (66) 08/15/19 16:25 100 08/14/19 06:43 Room Air Current Medications Current Medications Medications (Trade) Dose Ordered Sig/Fredis Route PRN Reason Start Time Stop Time Status Last Admin Dose Admin Acetaminophen (Tylenol Tab) 650 mg Q6HP PRN PO HEADACHE or DISCOMFORT 08/12/19 19:15 Al Hydrox/Mg Hydrox/Simethicone (Mylanta) 30 ml Q4HP PRN PO HEARTBURN/INDIGESTION 08/12/19 19:15 Aripiprazole (AbiLIFY) 5 mg QHS PO 08/17/19 21:00 08/17/19 21:03 Divalproex Sodium (Depakote Er) 250 mg BID PO 08/17/19 09:00 08/17/19 12:02 DC Home Med (Med Rec Complete!) ASDIRECTED XX 08/12/19 20:15 08/12/19 20:17 DC Magnesium Hydroxide (Milk Of Magnesia) 30 ml DAILYPRN PRN PO CONSTIPATION 08/12/19 19:15 Nicotine (Nicoderm Cq 21mg) 1 patch DAILYPRN PRN TD NICOTINE WITHDRAWAL 08/12/19 22:30 08/13/19 08:45 DC 08/13/19 08:12 Nicotine (Nicorette) 2 mg Q2HP PRN PO SMOKING CESSATION 08/13/19 08:45 08/18/19 14:09 Olanzapine (ZyPREXA ZYDIS) 5 mg Q6HP PRN PO ANXIETY/AGITATION 08/12/19 19:15 Paliperidone (Invega) 3 mg BID PO 08/12/19 21:00 08/13/19 14:07 DC 08/13/19 08:10 Paliperidone (Invega) 3 mg QAM PO 08/14/19 09:00 08/16/19 10:59 DC 08/16/19 08:28 Paliperidone (Invega) 6 mg QHS PO 08/13/19 21:00 08/16/19 10:59 DC 08/15/19 23:07 Paliperidone (Invega) 9 mg QHS PO 08/16/19 21:00 08/16/19 21:22 DC Paliperidone (Invega) 9 mg QHS PO 08/16/19 21:00 08/17/19 21:03 Trazodone HCl (Desyrel) 50 mg QHSP PRN PO INSOMNIA 08/12/19 19:15 Allergies Coded Allergies: haloperidol (Verified Allergy, Unknown, 07/06/19) TAMMY STARKEY DO Aug 18, 2019 16:36
[2019-08-18 18:00] VITALS: BP 114/57
[2019-08-18] MEDS: ARIPiprazole 10 MG TAB PO SCH (20:46)
[2019-08-18] MEDS: PALIPERIDONE 3 MG ER TAB (INVEGA) PO SCH (20:47)
[2019-08-19 06:36] VITALS: BP 110/54
--- NOTE | 2019-08-19 07:14 | MHIPNPDOC ---
[facility] Progress Note Progress Note Inpatient Progress Note Jessica Del Rio MRN: N/A Date of : N/A Date of Service: 08/19/2019 History of Present Illness The patient, a 33-year-old woman with a history of schizo-affective disorder, presents psychotic, confused, and unable to care for herself due to her severe delusions and hypersexuality. Interval History The patient was met with today. She reports she's doing better. Staff reports she's much more amenable, able to talk more length and much less preoccupied by delusions. She has stopped reporting any delusional content and has continued to work with staff to plan for potential discharge on Thursday. She reports that she's amenable to taking injectable medications as her insurance will take some time to take effect. Discussed with patient administration about getting patient's second injection of Invega through the ER, which she can present to get her second injection within the next week. She reports she wishes to go and no longer meets involuntary criteria as she's attending to her needs with good hygiene, has had no behavioral outbursts. Continues to deny suicidal or homicidal ideation. She's no longer confused and is able to take care of herself and participate in her discharge planning. Review Of Systems Denies any side effects from medications such as dizziness, tummy upset, chest pain, or palpitations. She additionally and denies any muscle tightness or stiffness. Psychotherapy None on this visit. Vital Signs Reviewed. Mental Status Examination General: Well dressed with good hygiene Speech: Spontaneous and fluid Thought processes: Linear and logical MSK: Smooth and coordinated gait, no signs of tremors or involuntary orofacial movements Thought content: Future orientated Abstract reasoning, and computation: Intact Description of associations: Intact Description of abnormal or psychotic thoughts: Denies any suicidal or homicidal ideation. Denies any auditory or visual hallucinations. Does not appear to be responding to internal stimuli. Does not appear to be endorsing any bizarre or paranoid ideation. Judgment: fair Insight: fair Orientation: Alert and orientated 3 Cognition: Grossly normal Recent and remote memory: Intact Attention span and concentration: Intact Fund of knowledge: Adequate Mood: "okay" Affect: Euthymic with a full range Diagnoses Schizoaffective disorder, most recent episode manic in remission. Assessment and Plan Schizoaffective disorder: Continue Invega 9 mg nightly and Abilify 10 mg nightly, Abilify Maintena 400 mg and Invega Sustenna 254 mg given in preparation for discharge tomorrow. Disposition Discharge tomorrow to home. Time Spent 20 minutes [id number]. Thursday Vital Signs Vital Signs Date Time Temp Pulse Resp B/P (MAP) Pulse Ox O2 Delivery O2 Flow Rate FiO2 08/19/19 06:36 98.6 68 12 110/54 (72) Room Air 08/15/19 16:25 100 Current Medications Current Medications Medications (Trade) Dose Ordered Sig/Fredis Route PRN Reason Start Time Stop Time Status Last Admin Dose Admin Acetaminophen (Tylenol Tab) 650 mg Q6HP PRN PO HEADACHE or DISCOMFORT 08/12/19 19:15 Al Hydrox/Mg Hydrox/Simethicone (Mylanta) 30 ml Q4HP PRN PO HEARTBURN/INDIGESTION 08/12/19 19:15 Aripiprazole (AbiLIFY) 5 mg QHS PO 08/17/19 21:00 08/18/19 17:23 DC 08/17/19 21:03 Aripiprazole (AbiLIFY) 10 mg QHS PO 08/18/19 21:00 08/18/19 20:46 Divalproex Sodium (Depakote Er) 250 mg BID PO 08/17/19 09:00 08/17/19 12:02 DC Home Med (Med Rec Complete!) ASDIRECTED XX 08/12/19 20:15 08/12/19 20:17 DC Magnesium Hydroxide (Milk Of Magnesia) 30 ml DAILYPRN PRN PO CONSTIPATION 08/12/19 19:15 Nicotine (Nicoderm Cq 21mg) 1 patch DAILYPRN PRN TD NICOTINE WITHDRAWAL 08/12/19 22:30 08/13/19 08:45 DC 08/13/19 08:12 Nicotine (Nicorette) 2 mg Q2HP PRN PO SMOKING CESSATION 08/13/19 08:45 08/18/19 23:22 Olanzapine (ZyPREXA ZYDIS) 5 mg Q6HP PRN PO ANXIETY/AGITATION 08/12/19 19:15 Paliperidone (Invega) 3 mg BID PO 08/12/19 21:00 08/13/19 14:07 DC 08/13/19 08:10 Paliperidone (Invega) 3 mg QAM PO 08/14/19 09:00 08/16/19 10:59 DC 08/16/19 08:28 Paliperidone (Invega) 6 mg QHS PO 08/13/19 21:00 08/16/19 10:59 DC 08/15/19 23:07 Paliperidone (Invega) 9 mg QHS PO 08/16/19 21:00 08/16/19 21:22 DC Paliperidone (Invega) 9 mg QHS PO 08/16/19 21:00 08/18/19 20:47 Trazodone HCl (Desyrel) 50 mg QHSP PRN PO INSOMNIA 08/12/19 19:15 Allergies Coded Allergies: haloperidol (Verified Allergy, Unknown, 07/06/19) TAMMY STARKEY DO Aug 19, 2019 07:14
[2019-08-19] MEDS: NICOTINE POLACRILEX 2 MG GUM PO PRN ×6 (08:40→23:47)
[2019-08-19] MEDS ORDERED: PALIPERIDONE PALMITATE 234MG/1.5ML INJ (INVEGA)(J2426)(FREE PSY INPT ONLY) IM ONE (09:00)
[2019-08-19] MEDS ORDERED: ARIPiprazole MONOHYDRATE 400 MG INJ (ABILIFY)(J0401) IM ONE (09:00)
[2019-08-19] MEDS: PALIPERIDONE 3 MG ER TAB (INVEGA) PO SCH (20:57)
[2019-08-19] MEDS: ARIPiprazole 10 MG TAB PO SCH (20:57)
[2019-08-20] MEDS: NICOTINE POLACRILEX 2 MG GUM PO PRN ×2 (06:01→08:54)
[2019-08-20 07:30] VITALS: BP 126/61
[2019-08-20] MEDS ORDERED: ABIL10TA9 PO (09:52)
[2019-08-20] MEDS ORDERED: NICO2GUM PO (09:52)
[2019-08-20] MEDS ORDERED: PALI1TAB2 PO (09:52)
--- NOTE | 2019-08-20 09:52 | MHDSPDOC ---
[facility] Discharge Summary Discharge Summary DATE OF ADMISSION: Aug 12, 2019 at 19:11 DATE OF DISCHARGE: 08/20/19 Jessica Del Rio Discharge Jessica Del Rio Select Gender MRN: N/A Date of : MM/DD/YYYY Date of Service: 08/20/2019 Diagnoses Schizoaffective disorder, most recent episode manic in remission. History of Present Illness The patient, a 33-year-old woman with a history of schizo-affective disorder, presents psychotic, confused, and unable to care for herself due to her severe delusions and hypersexuality. Consultants Involved Hospitalist/PCP screening Treatment and Progress On The Unit The patient was admitted to the unit initially psychotic. She was hypersexual and confused. She was initially started on Invega, titrated up to 9 mg total. Additionally due to her difficulty with compliance as an outpatient, she was augmented with 5 mg of Abilify and increased to 10 mg total. Eventually, the patient gained stability on this regimen and was subsequently given Abilify Maintena 400 mg daily and a loading dose of Invega 254 mg. She improved well, was able to attend to her own needs and had been denying suicidal and homicidal ideation through her stay. After we were able to secure a safe discharge, the patient requested to go. She did not meet involuntary criteria on the day of her discharge. She was not significantly impaired by her mental illness, denying suicidal and homicidal ideation, performing well with tasks of living and was able to participate in her discharge planning. She notably had difficulties with insurance, but would be establishing it on Thursday. She has been given doses of her medications, which should maintain stability. She's instructed to return to the hospital if she has any concerns or if she needs her medication in the interim. She declines further voluntary admission and is discharged in good mack. Discharge Assessment 33-year-old woman with a history of schizoaffective disorder that is treatment resistant. She requires max-dose Invega in addition to augmentation with Abilify. She has tried multiple neuroleptics and this approach appears to maximize her potential benefits as both are injectables, which the patient's amenable. Mental Status Examination General: Well dressed with good hygiene Speech: Spontaneous and fluid Thought processes: Linear and logical MSK: Smooth and coordinated gait, no signs of tremors or involuntary orofacial movements Thought content: Future orientated Abstract reasoning, and computation: Intact Description of associations: Intact Description of abnormal or psychotic thoughts: Denies any suicidal or homicidal ideation. Denies any auditory or visual hallucinations. Does not appear to be responding to internal stimuli. Does not appear to be endorsing any bizarre or paranoid ideation. Judgment: fair Insight: fair Orientation: Alert and orientated 3 Cognition: Grossly normal Recent and remote memory: Intact Attention span and concentration: Intact Fund of knowledge: Adequate Mood: "okay" Affect: Euthymic with a full range Follow Up The social work team worked during the predischarge meeting in order to evaluate for further issues of lethality address them fully before discharge. They worked on safety planning with the patient's family members in order to ensure that the patient will have a safe and effective discharge. Time Spent The amount of time spent in the coordination of care for this patient was approximately 30 minutes. Vital Signs/I&Os Vital Signs Date Time Temp Pulse Resp B/P (MAP) Pulse Ox O2 Delivery O2 Flow Rate FiO2 08/20/19 07:30 98.2 72 14 126/61 (82) 08/19/19 06:36 Room Air 08/15/19 16:25 100 Medications Scheduled Aripiprazole (Abilify) 10 Mg Tablet, 10 MG PO QHS for thoughts for 7 Days, #7 Paliperidone (Paliperidone ER) 3 Mg Tab.er.24, 9 MG PO QHS for thoughts for 7 Days, #7 Scheduled PRN Nicotine Polacrilex (Nicotine Gum) 2 Mg Gum, 2 MG PO Q2HP PRN for SMOKING CESSATION for 30 Days, #2 Allergies Coded Allergies: haloperidol (Verified Allergy, Unknown, 07/06/19) TAMMY STARKEY DO Aug 20, 2019 09:52
[2019-08-22] MEDS ORDERED: INVE9TAB PO (10:32)
== END 2019-08-20 11:30 | disposition home or self-care (01) | DRG 750 ==
LOC: M ED 16:17 → M ED INP 19:11 → M PSY 21:00
PROVIDERS: ADMIT Psychiatry & Neurology Psychiatry; ATTEND Psychiatry & Neurology Addiction Medicine
DX: F25.0 Schizoaffective disorder, bipolar type (principal); F43.10 Post-traumatic stress disorder, unspecified; Z62.810 Personal history of physical and sexual abuse in childhood; F17.290 Nicotine dependence, other tobacco product, uncomplicated; Z88.8 Allergy status to other drugs, medicaments and biological substances; F41.8 Other specified anxiety disorders; F52.8 Other sexual dysfunction not due to a substance or known physiological condition

== ENCOUNTER 2019-09-10 03:16 | Inpatient (IN) | payer SELFPAY ==
[~2019-09-10] VITALS: Ht 162.6 cm; Wt 77.7 kg
[~2019-09-10 03:16] MED LIST changes: +ABIL10TA9 PO; +INVE9TAB PO; +NICO2GUM PO
[2019-09-10 04:03] LABS: HEMATOCRIT 41.5 % (36.0-47.0); HEMOGLOBIN 13.3 g/dl (12.0-15.5); MEAN CORPUSCULAR VOLUME 93.5 fl (80.0-96.0); PLATELET COUNT, AUTOMATED 232 10^3/uL (150-450); RED BLOOD COUNT 4.44 10^6/uL (4.00-5.40); WHITE BLOOD COUNT 10.9 10^3/uL (4.0-10.0)
[2019-09-10 04:22] LABS: HCG, SERUM QUALITATIVE NEGATIVE (NEGATIVE)
[2019-09-10 04:28] LABS: AMPHETAMINES LEVEL URINE NEGATIVE (NEGATIVE); BARBITURATES URINE NEGATIVE (NEGATIVE); BENZODIAZEPINES URINE NEGATIVE (NEGATIVE); CANNABINOIDS URINE NEGATIVE (NEGATIVE); COCAINE METABOLITE URINE NEGATIVE (NEGATIVE); METHADONE URINE NEGATIVE (NEGATIVE); OPIATES URINE NEGATIVE (NEGATIVE); PHENCYCLIDINE URINE NEGATIVE (NEGATIVE)
[2019-09-10 04:56] LABS: ACETAMINOPHEN LEVEL < 2.0 UG/ML (10.0-30.0); ALBUMIN 3.9 GM/DL (3.2-5.2); ALT/SGPT 23 U/L (12-78); BILIRUBIN,DIRECT < 0.1 MG/DL (0.0-0.2); BILIRUBIN,TOTAL 0.3 MG/DL (0.2-1.0); BLOOD UREA NITROGEN 4 MG/DL (7-18); CALCIUM LEVEL 8.4 MG/DL (8.5-10.1); CARBON DIOXIDE LEVEL 28 MEQ/L (21-32); CHLORIDE LEVEL 106 MEQ/L (98-107); CREATININE FOR GFR 1.05 MG/DL (0.55-1.30); ETHYL ALCOHOL (ETHANOL) < 0.003 % (0.000-0.010); GLOMERULAR FILTRATION RATE > 60.0 (>60); GLUCOSE, FASTING 125 MG/DL (70-100); POTASSIUM SERUM 4.3 MEQ/L (3.5-5.1); SALICYLATE LEVEL 4.3 MG/DL (5.0-30.0); SODIUM LEVEL 139 MEQ/L (136-145); TOTAL PROTEIN 7.1 GM/DL (6.4-8.2)
[2019-09-10] MEDS ORDERED: MAALOX 30 ML SUSP *UDC PO PRN (05:45)
[2019-09-10] MEDS ORDERED: NICOTINE 21MG/24HR 1 EA TRANSDERMAL TD PRN (05:45)
[2019-09-10] MEDS ORDERED: ACETAMINOPHEN TAB 650MG DOSE (2X325MG) PO PRN (05:45)
[2019-09-10] MEDS ORDERED: MOM 30ML SUSPENSION UDC PO PRN (05:45)
[2019-09-10 09:13] VITALS: BP 131/74
--- NOTE | 2019-09-10 09:48 | HPEPDOC ---
[facility] Medical History & Physical Date of Admission Sep 10, 2019 Date of Service: Sep 10, 2019 History and Physical CHIEF COMPLAINT: Schizoaffective disorder HISTORY OF PRESENT ILLNESS: 34-year-old female with past medical history of schizoaffective disorder admitted to inpatient mental health unit for acute psychosis. Patient reports that she hears voices of [employer] who told her that her kids were killed last night. She started screaming 911 and knocked on all of her neighbors doors, Police eventually arrived and brought her here. He continues to hear voices at this time, telling her to stop breathing because she is taking too much oxygen. She denies any history of medical problems, does not take any medication at home. She denies any short of breath, nausea, vomiting, chest pain, abdominal pain or diarrhea. 10 point review of systems negative except for above PAST MEDICAL HISTORY: 1. Schizoaffective disorder. PAST SURGICAL HISTORY: 1. Tonsillectomy. 2. . SOCIAL HISTORY: Current smoker. Social alcohol use Denies drug use FAMILY HISTORY: Reports parents with psychiatric illnesses ALLERGIES: Please see below. HOME MEDICATIONS: Please see below. PHYSICAL EXAMINATION: VITAL SIGNS: Please see below. GENERAL: No distress HEENT: Normocephalic, atraumatic, moist mucous membranes NECK: Supple CARDIOVASCULAR EXAMINATION: S1, S2, no murmurs RESPIRATORY EXAMINATION: Clear to auscultation, no wheezing ABDOMINAL EXAMINATION: Soft, nontender, nondistended, positive bowel sounds EXTREMITIES: Range of motion intact SKIN: No rash NEUROLOGICAL EXAMINATION: Alert and oriented 3, no focal deficits PSYCHIATRIC EXAMINATION: Calm and cooperative LABORATORY DATA: See below. MICROBIOLOGY: Please see below. ASSESSMENT: 34-year-old female with past medical history of schizoaffective disorder admitted to inpatient mental health unit for acute psychosis. PLAN: 1. Schizoaffective disorder Management as per primary team Patient does not have any active medical issues at this time, please reconsult if needed. Vital Signs Vital Signs Date Time Temp Pulse Resp B/P (MAP) Pulse Ox O2 Delivery O2 Flow Rate FiO2 09/10/19 09:24 Room Air 09/10/19 09:13 98.4 80 18 131/74 (93) 100 Laboratory Data Labs 24H Laboratory Tests 2 09/10/19 03:53: Nucleated Red Blood Cells % (auto) 0.0, Anion Gap 5L, Glomerular Filtration Rate > 60.0, Calcium Level 8.4L, Total Bilirubin 0.3, Direct Bilirubin < 0.1, Aspartate Amino Transf (AST/SGOT) 12, Alanine Aminotransferase (ALT/SGPT) 23, Alkaline Phosphatase 58, Total Protein 7.1, Albumin 3.9, Albumin/Globulin Ratio 1.22, Thyroid Stimulating Hormone (TSH) 1.650, Human Chorionic Gonadotropin, Qual NEGATIVE, Salicylates Level 4.3L, Urine Opiates Screen NEGATIVE, Urine Methadone Screen NEGATIVE, Acetaminophen Level < 2.0L, Urine Barbiturates Screen NEGATIVE, Urine Phencyclidine Screen NEGATIVE, Urine Amphetamines Screen NEGATIVE, Urine Benzodiazepines Screen NEGATIVE, Urine Cocaine Metabolite Screen NEGATIVE, Urine Cannabinoids Screen NEGATIVE, Ethyl Alcohol Level < 0.003 CBC/BMP Laboratory Tests 09/10/19 03:53 Home Medications No Active Prescriptions or Reported Meds Allergies Coded Allergies: haloperidol (Verified Allergy, Unknown, 07/06/19) A-FIB/CHADSVASC A-FIB History Current/History of A-Fib/PAF?: No YAMEL SHANKS MD Sep 10, 2019 09:48
[2019-09-10] MEDS: NICOTINE POLACRILEX 2 MG GUM PO PRN ×6 (10:21→23:38)
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
[2019-09-10] MEDS ORDERED: QUEtiapine FUMARATE 200 MG TAB PO ONE (13:30)
[2019-09-10] MEDS: PALIPERIDONE 3 MG ER TAB (INVEGA) PO SCH (20:44)
[2019-09-11 06:05] VITALS: BP 120/55
[2019-09-11] MEDS: NICOTINE POLACRILEX 2 MG GUM PO PRN ×6 (07:39→18:39)
--- NOTE | 2019-09-11 15:00 | MHIPNPDOC ---
[facility] Progress Note Progress Note DATE OF SERVICE: 09/11/19 HISTORY: As per Dr. Childs: "The patient a 34-year-old woman presents to [facility]. She had been released 1 month ago on an injectable anti-psychotic, however, she was found bizarre, talking to herself and was unable to engage in a meaningful interview in the ER due to her severe psychosis. She was admitted, however, when I attempt to speak with her she other than requesting discharge began to go on long diatribes about "[place] crashing" and a number of strange and bizarre delusions. She has been walking around the unit, bizarre, talking to herself and talking to empty rooms. She appears highly psychotic and very ill. She is unable to engage in a meaningful conversation about her symptoms, but appears to have decompensated significantly in her psychotic symptoms. She was also observed in the unit becoming bizarre and knocking on the window very loudly, stating that a patient had escaped when no such event had happened. The patient appears highly confused, unable to care for herself." VITAL SIGNS: See below. NEW TEST RESULTS: See below CURRENT MEDICATIONS: See below. MENTAL STATUS EXAMINATION: Patient is a 34-year old female, who is dressed in hospital clothes, disheveled Speech: Is rapid, pressured. Thought processes including: tangential, disorganized Thought content: Paranoid and bizarre delusions, she says the Devil is gone now but he wanted to hurt her, somebody has been puling her nose because in that way they can take control of her and is mostly a Druze and so on. Description of associations: Loose Description of abnormal or psychotic thoughts: She is responding to internal stimuli, she has AV hallucinations, talks to herself and has paranoid delusions. Judgment: Poor. Insight: Poor. Orientation: x 3. Recent and remote memory: Intact Attention span and concentration: Good Fund of knowledge: Average Mood: "I'm better now that Devil is gone" Affect: anxious, full, reactive. DIAGNOSES: Schizoaffective Disorder ASSESSMENT: Patient continues to be psychotic, she has refused her medications, she is not insightful about her illness. This patient is known to me from a pre vious admission and she has very similar presentation. She would benefit from IM medications because it seems that she has been not compliant with meds. MANAGEMENT PLAN: As per Dr. Childs TIME SPENT: 20 minutes. Vital Signs Vital Signs Date Time Temp Pulse Resp B/P (MAP) Pulse Ox O2 Delivery O2 Flow Rate FiO2 09/11/19 06:05 99.3 66 18 120/55 (76) Room Air 09/10/19 09:13 100 Current Medications Current Medications Medications (Trade) Dose Ordered Sig/Fredis Route PRN Reason Start Time Stop Time Status Last Admin Dose Admin Acetaminophen (Tylenol Tab) 650 mg Q6HP PRN PO HEADACHE or DISCOMFORT 09/10/19 05:45 Al Hydrox/Mg Hydrox/Simethicone (Mylanta) 30 ml Q4HP PRN PO HEARTBURN/INDIGESTION 09/10/19 05:45 Home Med (Med Rec Complete!) ASDIRECTED XX 09/10/19 04:15 09/10/19 04:16 DC Magnesium Hydroxide (Milk Of Magnesia) 30 ml DAILYPRN PRN PO CONSTIPATION 09/10/19 05:45 Nicotine (Nicoderm Cq 21mg) 1 patch DAILY PRN TD Nicotine Withdrawal 09/10/19 05:45 Cancel Nicotine (Nicorette) 2 mg Q2HP PRN PO SMOKING CESSATION 09/10/19 10:30 09/11/19 14:18 Paliperidone (Invega) 3 mg QHS PO 09/10/19 21:00 Trazodone HCl (Desyrel) 50 mg QHSP PRN PO INSOMNIA 09/10/19 05:45 Allergies Coded Allergies: haloperidol (Verified Allergy, Unknown, 07/06/19) STACY NINA MD Sep 11, 2019 14:37
[2019-09-11 15:40] VITALS: BP 131/68
[2019-09-11] MEDS ORDERED: OLANZapine ORAL DISINTEGRATING TAB 5MG PO STA (19:05)
[2019-09-11] MEDS ORDERED: diphenhydrAMINE 50 MG CAP PO STA (21:11)
[2019-09-11] MEDS: PALIPERIDONE 3 MG ER TAB (INVEGA) PO SCH (21:17)
[2019-09-12] MEDS: NICOTINE POLACRILEX 2 MG GUM PO PRN ×4 (03:25→16:11)
[2019-09-12 06:27] VITALS: BP 112/70
--- NOTE | 2019-09-12 11:04 | MHIPNPDOC ---
[facility] Progress Note Progress Note DATE OF SERVICE: 09/12/19 HISTORY: As per Dr. Cihlds: "The patient a 34-year-old woman presents to [facility]. She had been released 1 month ago on an injectable anti-psychotic, however, she was found bizarre, talking to herself and was unable to engage in a meaningful interview in the ER due to her severe psychosis. She was admitted, however, when I attempt to speak with her she other than requesting discharge began to go on long diatribes about "[place] crashing" and a number of strange and bizarre delusions. She has been walking around the unit, bizarre, talking to herself and talking to empty rooms. She appears highly psychotic and very ill. She is unable to engage in a meaningful conversation about her symptoms, but appears to have decompensated significantly in her psychotic symptoms. She was also observed in the unit becoming bizarre and knocking on the window very loudly, stating that a patient had escaped when no such event had happened. The patient appears highly confused, unable to care for herself." VITAL SIGNS: See below. NEW TEST RESULTS: See below CURRENT MEDICATIONS: See below. MENTAL STATUS EXAMINATION: Per Dr. Haro's note yesterday as pt currently kary mckeon asleep: Patient is a 34-year old female, who is dressed in hospital clothes, disheveled Speech: Is rapid, pressured. Thought processes including: tangential, disorganized Thought content: Paranoid and bizarre delusions, she says the Devil is gone now but he wanted to hurt her, somebody has been puling her nose because in that way they can take control of her and is mostly a Denominational and so on. Description of associations: Loose Description of abnormal or psychotic thoughts: She is responding to internal stimuli, she has AV hallucinations, talks to herself and has paranoid delusions. Judgment: Poor. Insight: Poor. Orientation: x 3. Recent and remote memory: Intact Attention span and concentration: Good Fund of knowledge: Average Mood: "I'm better now that Devil is gone" Affect: anxious, full, reactive. DIAGNOSES: Schizoaffective Disorder ASSESSMENT: Patient took her invega last night per med rec. Attempted to see pt today in her room but asleep heavily and left sleeping due to symptoms of psychosis and irritability when awake. Per Dr. Haro's note yesterday. "Pt continues to be psychotic, she is not insightful about her illness. This patient is known to me from a previous admission and she has very similar presentation. She would benefit from IM medications because it seems that she has been not compliant with meds." MANAGEMENT PLAN: continue plan. medications: invega 3mg qhs TIME SPENT: 30 minutes. Vital Signs Vital Signs Date Time Temp Pulse Resp B/P (MAP) Pulse Ox O2 Delivery O2 Flow Rate FiO2 09/12/19 06:27 98.3 62 16 112/70 (84) Room Air 09/10/19 09:13 100 Current Medications Current Medications Medications (Trade) Dose Ordered Sig/Fredis Route PRN Reason Start Time Stop Time Status Last Admin Dose Admin Acetaminophen (Tylenol Tab) 650 mg Q6HP PRN PO HEADACHE or DISCOMFORT 09/10/19 05:45 Al Hydrox/Mg Hydrox/Simethicone (Mylanta) 30 ml Q4HP PRN PO HEARTBURN/INDIGESTION 09/10/19 05:45 Diphenhydramine HCl (Benadryl) 75 mg STAT STAT PO 09/11/19 21:11 09/11/19 21:14 DC 09/11/19 21:17 Home Med (Med Rec Complete!) ASDIRECTED XX 09/10/19 04:15 09/10/19 04:16 DC Magnesium Hydroxide (Milk Of Magnesia) 30 ml DAILYPRN PRN PO CONSTIPATION 09/10/19 05:45 Nicotine (Nicoderm Cq 21mg) 1 patch DAILY PRN TD Nicotine Withdrawal 09/10/19 05:45 Cancel Nicotine (Nicorette) 2 mg Q2HP PRN PO SMOKING CESSATION 09/10/19 10:30 09/12/19 03:25 Olanzapine (ZyPREXA ZYDIS) 15 mg STAT STAT PO 09/11/19 19:05 09/11/19 19:07 DC 09/11/19 19:09 Paliperidone (Invega) 3 mg QHS PO 09/10/19 21:00 09/11/19 21:17 Trazodone HCl (Desyrel) 50 mg QHSP PRN PO INSOMNIA 09/10/19 05:45 Allergies Coded Allergies: haloperidol (Verified Allergy, Unknown, 07/06/19) RODRIGUE ARCHULETA DO Sep 12, 2019 11:04 am
[2019-09-12] MEDS ORDERED: LORazepam 2 MG TAB PO PRN (14:45)
[2019-09-12] MEDS: OLANZapine ORAL DISINTEGRATING TAB 5MG PO PRN (15:11)
[2019-09-12 17:45] VITALS: BP 141/73
[2019-09-12] MEDS: PALIPERIDONE 3 MG ER TAB (INVEGA) PO SCH (22:04)
[2019-09-13] MEDS: NICOTINE POLACRILEX 2 MG GUM PO PRN ×6 (05:35→21:14)
[2019-09-13 06:27] VITALS: BP 151/80
--- NOTE | 2019-09-13 09:19 | MHIPNPDOC ---
[facility] Progress Note Progress Note DATE OF SERVICE: 09/13/19 HISTORY: As per Dr. Childs: "The patient a 34-year-old woman presents to [facility]. She had been released 1 month ago on an injectable anti-psychotic, however, she was found bizarre, talking to herself and was unable to engage in a meaningful interview in the ER due to her severe psychosis. She was admitted, however, when I attempt to speak with her she other than requesting discharge began to go on long diatribes about "[place] crashing" and a number of strange and bizarre delusions. She has been walking around the unit, bizarre, talking to herself and talking to empty rooms. She appears highly psychotic and very ill. She is unable to engage in a meaningful conversation about her symptoms, but appears to have decompensated significantly in her psychotic symptoms. She was also observed in the unit becoming bizarre and knocking on the window very loudly, stating that a patient had escaped when no such event had happened. The patient appears highly confused, unable to care for herself." VITAL SIGNS: See below. NEW TEST RESULTS: See below CURRENT MEDICATIONS: See below. MENTAL STATUS EXAMINATION: Per Dr. Haro's note yesterday as pt currently kary malineep: Patient is a 34-year old female, who is dressed in hospital clothes, clean Speech: Is regular rate, normal voleume Thought processes including: tangential, disorganized Thought content: improved Paranoid and bizarre delusions, she says the Devil is gone now but he wanted to hurt her, somebody has been puling her nose because in that way they can take control of her and is mostly a Voodoo and so on. Description of associations: Loose that are improving Description of abnormal or psychotic thoughts: improving responding to internal stimuli, AV hallucinations, talks to herself and has paranoid delusions. Judgment: Poor. Insight: Poor. Orientation: x 3. Recent and remote memory: Intact Attention span and concentration: Good Fund of knowledge: Average Mood: "I'm ok" Affect: anxious, full, reactive. DIAGNOSES: Schizoaffective Disorder ASSESSMENT: Patient seen in day room and states she's doing ok and is hopeful to go home soon. Called by nursing yesterday as pt anxious, responding to internal stimuli, paranoid, and getting angry on the unit and was provided prn zyprexa zydis and ativan that she took with improvement in symptoms. She is cooperative this morning. Appears less paranoid but continues to be some what disorganized and bizarre in her affect acting and is showing poor insight into her psychia tric disorder, acting as if nothings wrong with her and she has no reason to be here. She is compliant with her medications which appear beneficial and like she's tolerating them well. Will give invega sustenna 234mg im for med compliance as has a problem with noncompliance on pills when not in the hospital. Per Dr. Haro's note yesterday. "Pt continues to be psychotic, she is not insightful about her illness. This patient is known to me from a previous admission and she has very similar presentation. She would benefit from IM medications because it seems that she has been not compliant with meds." MANAGEMENT PLAN: continue plan. invega sustenna 234mg im x1 today medications: invega 3mg qhs invega sustenna 234mg im x1 today TIME SPENT: 30 minutes. Vital Signs Vital Signs Date Time Temp Pulse Resp B/P (MAP) Pulse Ox O2 Delivery O2 Flow Rate FiO2 09/13/19 06:27 97.8 108 18 151/80 (103) Room Air 09/10/19 09:13 100 Current Medications Current Medications Medications (Trade) Dose Ordered Sig/Fredis Route PRN Reason Start Time Stop Time Status Last Admin Dose Admin Acetaminophen (Tylenol Tab) 650 mg Q6HP PRN PO HEADACHE or DISCOMFORT 09/10/19 05:45 Al Hydrox/Mg Hydrox/Simethicone (Mylanta) 30 ml Q4HP PRN PO HEARTBURN/INDIGESTION 09/10/19 05:45 Diphenhydramine HCl (Benadryl) 75 mg STAT STAT PO 09/11/19 21:11 09/11/19 21:14 DC 09/11/19 21:17 Home Med (Med Rec Complete!) ASDIRECTED XX 09/10/19 04:15 09/10/19 04:16 DC Lorazepam (Ativan) 2 mg Q4HP PRN PO ANXIETY/AGITATION 09/12/19 14:45 09/12/19 14:51 Magnesium Hydroxide (Milk Of Magnesia) 30 ml DAILYPRN PRN PO CONSTIPATION 09/10/19 05:45 Nicotine (Nicoderm Cq 21mg) 1 patch DAILY PRN TD Nicotine Withdrawal 09/10/19 05:45 Cancel Nicotine (Nicorette) 2 mg Q2HP PRN PO SMOKING CESSATION 09/10/19 10:30 09/13/19 08:36 Olanzapine (ZyPREXA ZYDIS) 10 mg Q4HP PRN PO ANXIETY/AGITATION 09/12/19 14:45 09/12/19 15:11 Olanzapine (ZyPREXA ZYDIS) 15 mg STAT STAT PO 09/11/19 19:05 09/11/19 19:07 DC 09/11/19 19:09 Paliperidone (Invega) 3 mg QHS PO 09/10/19 21:00 09/12/19 22:04 Trazodone HCl (Desyrel) 50 mg QHSP PRN PO INSOMNIA 09/10/19 05:45 Allergies Coded Allergies: haloperidol (Verified Allergy, Unknown, 07/06/19) RODRIGUE ARCHULETA DO Sep 13, 2019 9:19 am
[2019-09-13] MEDS ORDERED: SODIUM CHLORIDE NASAL 0.65% SPRAY BTL (OCEAN) PRN (10:15)
[2019-09-13] MEDS: OLANZapine ORAL DISINTEGRATING TAB 5MG PO PRN (10:36)
[2019-09-13] MEDS ORDERED: PALIPERIDONE PALMITATE 234MG/1.5ML INJ (INVEGA)(J2426)(FREE PSY INPT ONLY) IM ONE (11:00)
[2019-09-13] MEDS: PALIPERIDONE 3 MG ER TAB (INVEGA) PO SCH (21:00)
[2019-09-14] MEDS: NICOTINE POLACRILEX 2 MG GUM PO PRN ×6 (03:21→19:51)
--- NOTE | 2019-09-14 08:38 | MHIPNPDOC ---
[facility] [place] DATE OF SERVICE: 09/14/19 HISTORY: As per Dr. Childs: "The patient a 34-year-old woman presents to [facility]. She had been released 1 month ago on an injectable anti-psychotic, however, she was found bizarre, talking to herself and was unable to engage in a meaningful interview in the ER due to her severe psychosis. She was admitted, however, when I attempt to speak with her she other than requesting discharge began to go on long diatribes about "[place] crashing" and a number of strange and bizarre delusions. She has been walking around the unit, bizarre, talking to herself and talking to empty rooms. She appears highly psychotic and very ill. She is unable to engage in a meaningful conversation about her symptoms, but appears to have decompensated significantly in her psychotic symptoms. She was also observed in the unit becoming bizarre and knocking on the window very loudly, stating that a patient had escaped when no such event had happened. The patient appears highly confused, unable to care for herself." VITAL SIGNS: See below. NEW TEST RESULTS: See below CURRENT MEDICATIONS: See below. MENTAL STATUS EXAMINATION: Patient is a 34-year old female, who is dressed in hospital clothes, clean Speech: Is regular rate, normal volume Thought processes including: tangential, disorganized Thought content: Paranoid and bizarre islam delusions ("I'm free from sin, the devil has left me."), she says the Devil is gone now but he wanted to hurt her, somebody has been puling her nose because in that way they can take control of her and is mostly a Yarsanism and so on. Description of associations: Loose Description of abnormal or psychotic thoughts: responding to internal stimuli, AV hallucinations, talks to herself and has paranoid delusions. Judgment: Poor. Insight: Poor. Orientation: x 3. Recent and remote memory: Intact Attention span and concentration: Good Fund of knowledge: Average Mood: "can I go home today" Affect: anxious, full, reactive, moderately elevated. DIAGNOSES: Schizoaffective Disorder ASSESSMENT: Patient seen in office asking if she can go home today. States she didn't take invega sustenna yesterday as she last got it 08/11/19 and advised she is due for her next injection and encouraged to take it today. Pt again asking to be discharged, wants to go outside, wants to walk home, and stated "I'm free from sin the devil has left me." Yesterday, later in the day, pt was manic singing and rambling loudly in a disorganized fashion, responding to internal stimuli, talking of religiously preoccupied delusions in the milieu and took zypreza zydis and ativan for her rachelle and psychosis with improvement in symptoms as she went to bed. Pt is disorganized this morning, having a very hard time understanding why this is a locked unit and why she can't go home today. Her insight remains very poor. She is compliant with her medications which appear beneficial and like she's tolerating them well. Will give invega sustenna 234mg im for med compliance as has a problem with noncompliance on pills when not in the hospital. Per Dr. Haro's note yesterday. "Pt continues to be psychotic, she is not insightful about her illness. This patient is known to me from a previous admission and she has very similar presentation. She would benefit from IM medications because it seems that she has been not compliant with meds." MANAGEMENT PLAN: continue plan. invega sustenna 234mg im x1 today medications: invega 3mg qhs invega sustenna 234mg im x1 today TIME SPENT: 30 minutes. Vital Signs Vital Signs Date Time Temp Pulse Resp B/P (MAP) Pulse Ox O2 Delivery O2 Flow Rate FiO2 09/13/19 06:27 97.8 108 18 151/80 (103) Room Air 09/10/19 09:13 100 Current Medications Current Medications Medications (Trade) Dose Ordered Sig/Fredis Route PRN Reason Start Time Stop Time Status Last Admin Dose Admin Acetaminophen (Tylenol Tab) 650 mg Q6HP PRN PO HEADACHE or DISCOMFORT 09/10/19 05:45 Al Hydrox/Mg Hydrox/Simethicone (Mylanta) 30 ml Q4HP PRN PO HEARTBURN/INDIGESTION 09/10/19 05:45 Diphenhydramine HCl (Benadryl) 75 mg STAT STAT PO 09/11/19 21:11 09/11/19 21:14 DC 09/11/19 21:17 Home Med (Med Rec Complete!) ASDIRECTED XX 09/10/19 04:15 09/10/19 04:16 DC Lorazepam (Ativan) 2 mg Q4HP PRN PO ANXIETY/AGITATION 09/12/19 14:45 09/12/19 14:51 Magnesium Hydroxide (Milk Of Magnesia) 30 ml DAILYPRN PRN PO CONSTIPATION 09/10/19 05:45 Nicotine (Nicoderm Cq 21mg) 1 patch DAILY PRN TD Nicotine Withdrawal 09/10/19 05:45 Cancel Nicotine (Nicorette) 2 mg Q2HP PRN PO SMOKING CESSATION 09/10/19 10:30 09/14/19 06:43 Olanzapine (ZyPREXA ZYDIS) 10 mg Q4HP PRN PO ANXIETY/AGITATION 09/12/19 14:45 09/13/19 10:36 Olanzapine (ZyPREXA ZYDIS) 15 mg STAT STAT PO 09/11/19 19:05 09/11/19 19:07 DC 09/11/19 19:09 Paliperidone (Invega) 3 mg QHS PO 09/10/19 21:00 09/12/19 22:04 Sodium Chloride ([place] Nasal [place]) 2 spray Q2HP PRN NA NASAL DRYNESS 09/13/19 10:15 Trazodone HCl (Desyrel) 50 mg QHSP PRN PO INSOMNIA 09/10/19 05:45 Allergies Coded Allergies: haloperidol (Verified Allergy, Unknown, 07/06/19) RODRIGUE ARCHULETA DO Sep 14, 2019 8:38 am
[2019-09-14] MEDS: PALIPERIDONE PALMITATE 234MG/1.5ML INJ (INVEGA)(J2426)(FREE PSY INPT ONLY) IM ONE ×2 (10:08→10:58)
[2019-09-14] MEDS: OLANZapine ORAL DISINTEGRATING TAB 5MG PO PRN (15:51)
[2019-09-14 18:18] VITALS: BP 156/70
[2019-09-14] MEDS: PALIPERIDONE 3 MG ER TAB (INVEGA) PO SCH (20:52)
[2019-09-15 06:17] VITALS: BP 98/54
[2019-09-15] MEDS: NICOTINE POLACRILEX 2 MG GUM PO PRN ×6 (09:48→21:57)
--- NOTE | 2019-09-15 10:20 | MHIPNPDOC ---
[facility] Progress Note Progress Note DATE OF SERVICE: 09/15/19 HISTORY: As per Dr. Childs: "The patient a 34-year-old woman presents to [facility]. She had been released 1 month ago on an injectable anti-psychotic, however, she was found bizarre, talking to herself and was unable to engage in a meaningful interview in the ER due to her severe psychosis. She was admitted, however, when I attempt to speak with her she other than requesting discharge began to go on long diatribes about "[place] crashing" and a number of strange and bizarre delusions. She has been walking around the unit, bizarre, talking to herself and talking to empty rooms. She appears highly psychotic and very ill. She is unable to engage in a meaningful conversation about her symptoms, but appears to have decompensated significantly in her psychotic symptoms. She was also observed in the unit becoming bizarre and knocking on the window very loudly, stating that a patient had escaped when no such event had happened. The patient appears highly confused, unable to care for herself." VITAL SIGNS: See below. NEW TEST RESULTS: See below CURRENT MEDICATIONS: See below. MENTAL STATUS EXAMINATION: Patient is a 34-year old female, who is dressed in hospital clothes, clean Speech: Is regular rate, normal volume Thought processes including: tangential, disorganized Thought content: Paranoid and bizarre samaritan delusions ("I'm free from sin, the devil has left me."), she says the Devil is gone now but he wanted to hurt her, somebody has been puling her nose because in that way they can take control of her and is mostly a Anabaptist and so on. Description of associations: Loose, religiosity Description of abnormal or psychotic thoughts: responding to internal stimuli, AV hallucinations, talks to herself and has paranoid delusions. Judgment: Poor. Insight: Poor. Orientation: x 3. Recent and remote memory: Intact Attention span and concentration: poor Fund of knowledge: Average Mood: "I want to go home" Affect: anxious, elevated, reactive, manic DIAGNOSES: Schizoaffective Disorder ASSESSMENT: Patient over heard in milieu talking to d/c product planner and sounds manic, rambling on and on about seeing angels and demons, very disorganized and tangential and not making much sense. She did taking her invega sustenna 234mg im yesterday and appears to be tolerating it well but does appear quite beneficial yet and most likely will need maintenance dose of invega sustenna 156mg im in 2 days, she did not receive this dose when first started on invega sustenna 08/11/19. She is manic and will start lithium 300mg tid for mood stabilization as appears to need a mood stabilizer greatly. Pt again asking to be discharged. Her insight remains very poor. She is compliant with her medications that she appears to be tolerating well Per Dr. Haro's note yesterday. "Pt continues to be psychotic, she is not insightful about her illness. This patient is known to me from a previous admission and she has very similar presentation. She would benefit from IM medications because it seems that she has been not compliant with meds." MANAGEMENT PLAN: continue plan. invega sustenna 156mg im x1 2 days. start lithium, increase oral invega medications: invega 3mg bid lithium 300mg tid invega sustenna 234mg im x1 today TIME SPENT: 30 minutes. Vital Signs Vital Signs Date Time Temp Pulse Resp B/P (MAP) Pulse Ox O2 Delivery O2 Flow Rate FiO2 09/15/19 06:17 97.7 52 16 98/54 (69) 09/13/19 06:27 Room Air 09/10/19 09:13 100 Current Medications Current Medications Medications (Trade) Dose Ordered Sig/Fredis Route PRN Reason Start Time Stop Time Status Last Admin Dose Admin Acetaminophen (Tylenol Tab) 650 mg Q6HP PRN PO HEADACHE or DISCOMFORT 09/10/19 05:45 Al Hydrox/Mg Hydrox/Simethicone (Mylanta) 30 ml Q4HP PRN PO HEARTBURN/INDIGESTION 09/10/19 05:45 Diphenhydramine HCl (Benadryl) 75 mg STAT STAT PO 09/11/19 21:11 09/11/19 21:14 DC 09/11/19 21:17 Home Med (Med Rec Complete!) ASDIRECTED XX 09/10/19 04:15 09/10/19 04:16 DC Lorazepam (Ativan) 2 mg Q4HP PRN PO ANXIETY/AGITATION 09/12/19 14:45 09/12/19 14:51 Magnesium Hydroxide (Milk Of Magnesia) 30 ml DAILYPRN PRN PO CONSTIPATION 09/10/19 05:45 Nicotine (Nicoderm Cq 21mg) 1 patch DAILY PRN TD Nicotine Withdrawal 09/10/19 05:45 Cancel Nicotine (Nicorette) 2 mg Q2HP PRN PO SMOKING CESSATION 09/10/19 10:30 09/15/19 09:48 Olanzapine (ZyPREXA ZYDIS) 10 mg Q4HP PRN PO ANXIETY/AGITATION 09/12/19 14:45 09/14/19 15:51 Olanzapine (ZyPREXA ZYDIS) 15 mg STAT STAT PO 09/11/19 19:05 09/11/19 19:07 DC 09/11/19 19:09 Paliperidone (Invega) 3 mg QHS PO 09/10/19 21:00 09/14/19 20:52 Sodium Chloride ([place] Nasal [place]) 2 spray Q2HP PRN NA NASAL DRYNESS 09/13/19 10:15 Trazodone HCl (Desyrel) 50 mg QHSP PRN PO INSOMNIA 09/10/19 05:45 Allergies Coded Allergies: haloperidol (Verified Allergy, Unknown, 07/06/19) RODRIGUE ARCHULETA DO Sep 15, 2019 10:20 am
[2019-09-15] MEDS ORDERED: PALIPERIDONE 3 MG ER TAB (INVEGA) PO ONE (11:00)
[2019-09-15] MEDS ORDERED: LITHIUM CARBONATE 300 MG CAP PO ONE (11:00)
[2019-09-15] MEDS: OLANZapine ORAL DISINTEGRATING TAB 5MG PO PRN (13:57)
[2019-09-15] MEDS: LITHIUM CARBONATE 300 MG CAP PO SCH ×2 (16:01→21:54)
[2019-09-15 18:00] VITALS: BP 112/75
[2019-09-15] MEDS: traZODone 50 MG TAB PO PRN (21:54)
[2019-09-15] MEDS: PALIPERIDONE 3 MG ER TAB (INVEGA) PO SCH (21:55)
[2019-09-16] MEDS: NICOTINE POLACRILEX 2 MG GUM PO PRN ×5 (00:07→19:23)
[2019-09-16 06:10] VITALS: BP 94/50
--- NOTE | 2019-09-16 09:24 | MHIPNPDOC ---
[facility] Progress Note Progress Note DATE OF SERVICE: 09/16/19 HISTORY: As per Dr. Childs: "The patient a 34-year-old woman presents to [facility]. She had been released 1 month ago on an injectable anti-psychotic, however, she was found bizarre, talking to herself and was unable to engage in a meaningful interview in the ER due to her severe psychosis. She was admitted, however, when I attempt to speak with her she other than requesting discharge began to go on long diatribes about "[place] crashing" and a number of strange and bizarre delusions. She has been walking around the unit, bizarre, talking to herself and talking to empty rooms. She appears highly psychotic and very ill. She is unable to engage in a meaningful conversation about her symptoms, but appears to have decompensated significantly in her psychotic symptoms. She was also observed in the unit becoming bizarre and knocking on the window very loudly, stating that a patient had escaped when no such event had happened. The patient appears highly confused, unable to care for herself." VITAL SIGNS: See below. NEW TEST RESULTS: See below CURRENT MEDICATIONS: See below. MENTAL STATUS EXAMINATION: Patient is a 34-year old female, who is dressed in hospital clothes, clean Speech: Is regular rate, normal volume Thought processes including: tangential, disorganized Thought content: Paranoid and bizarre methodist delusions ("I'm free from sin, the devil has left me."), she says the Devil is gone now but he wanted to hurt her, somebody has been puling her nose because in that way they can take control of her and is mostly a Hoahaoism and so on. Description of associations: Loose, religiosity Description of abnormal or psychotic thoughts: responding to internal stimuli, AV hallucinations, talks to herself and has paranoid delusions. Judgment: Poor. Insight: Poor. Orientation: x 3. Recent and remote memory: Intact Attention span and concentration: poor Fund of knowledge: Average Mood: "I want to go home" Affect: anxious, elevated, reactive, manic DIAGNOSES: Schizoaffective Disorder ASSESSMENT: Patient currently asleep this am. Is compliant on her invega and lithium. [place] that was started yesterday appears beneficial as her rachelle appears improved indicated by pt still asleep this am. Per nursing, pt euphoric and very hyperverbal last night. Per yesterday's note: "Patient over heard in milieu talking to d/c senior program planner and sounds manic, rambling on and on about seeing angels and demons, very disorganized and tangential and not making much sense. She did taking her invega sustenna 234mg im yesterday and appears to be tolerating it well but does appear quite beneficial yet and most likely will need maintenance dose of invega sustenna 156mg im in 2 days, she did not receive this dose when first started on invega sustenna 08/11/19. She is manic and will start lithium 300mg tid for mood stabilization as appears to need a mood stabilizer greatly. Pt again asking to be discharged. Her insight remains very poor. She is compliant with her medications that she appears to be tolerating well Per Dr. Haro's note yesterday. "Pt continues to be psychotic, she is not insightful about her illness. This patient is known to me from a previous admission and she has very similar presentation. She would benefit from IM medications because it seems that she has been not compliant with meds." MANAGEMENT PLAN: continue plan. invega sustenna 156mg im x1 2 days. start lithium, increase oral invega medications: invega 3mg bid lithium 300mg tid invega sustenna 234mg im x1 today TIME SPENT: 30 minutes. Vital Signs Vital Signs Date Time Temp Pulse Resp B/P (MAP) Pulse Ox O2 Delivery O2 Flow Rate FiO2 09/16/19 06:10 99.0 69 16 94/50 (65) 09/13/19 06:27 Room Air 09/10/19 09:13 100 Current Medications Current Medications Medications (Trade) Dose Ordered Sig/Fredis Route PRN Reason Start Time Stop Time Status Last Admin Dose Admin Acetaminophen (Tylenol Tab) 650 mg Q6HP PRN PO HEADACHE or DISCOMFORT 09/10/19 05:45 Al Hydrox/Mg Hydrox/Simethicone (Mylanta) 30 ml Q4HP PRN PO HEARTBURN/INDIGESTION 09/10/19 05:45 Diphenhydramine HCl (Benadryl) 75 mg STAT STAT PO 09/11/19 21:11 09/11/19 21:14 DC 09/11/19 21:17 Home Med (Med Rec Complete!) ASDIRECTED XX 09/10/19 04:15 09/10/19 04:16 DC [place] Carbonate ([place] Carbonate) 300 mg TID PO 09/15/19 16:00 09/15/19 21:54 Lorazepam (Ativan) 2 mg Q4HP PRN PO ANXIETY/AGITATION 09/12/19 14:45 09/12/19 14:51 Magnesium Hydroxide (Milk Of Magnesia) 30 ml DAILYPRN PRN PO CONSTIPATION 09/10/19 05:45 Nicotine (Nicoderm Cq 21mg) 1 patch DAILY PRN TD Nicotine Withdrawal 09/10/19 05:45 Cancel Nicotine (Nicorette) 2 mg Q2HP PRN PO SMOKING CESSATION 09/10/19 10:30 09/16/19 00:07 Olanzapine (ZyPREXA ZYDIS) 10 mg Q4HP PRN PO ANXIETY/AGITATION 09/12/19 14:45 09/14/19 15:51 Olanzapine (ZyPREXA ZYDIS) 15 mg STAT STAT PO 09/11/19 19:05 09/11/19 19:07 DC 09/11/19 19:09 Paliperidone (Invega) 3 mg QAM PO 09/16/19 09:00 Paliperidone (Invega) 3 mg QHS PO 09/10/19 21:00 09/15/19 21:55 Sodium Chloride ([place] Nasal [place]) 2 spray Q2HP PRN NA NASAL DRYNESS 09/13/19 10:15 Trazodone HCl (Desyrel) 50 mg QHSP PRN PO INSOMNIA 09/10/19 05:45 09/15/19 21:54 Allergies Coded Allergies: haloperidol (Verified Allergy, Unknown, 07/06/19) RODRGIUE ARCHULETA DO Sep 16, 2019 9:24 am
[2019-09-16] MEDS: PALIPERIDONE 3 MG ER TAB (INVEGA) PO SCH ×2 (09:57→20:07)
[2019-09-16] MEDS: LITHIUM CARBONATE 300 MG CAP PO SCH ×3 (09:57→20:07)
[2019-09-16] MEDS: OLANZapine ORAL DISINTEGRATING TAB 5MG PO PRN ×2 (11:16→18:27)
[2019-09-16] MEDS ORDERED: PALIPERIDONE PALMITATE 156MG/1ML INJ(INVEGA)(J2426)(FREE PSY INPT ONLY) IM ONE (13:00)
[2019-09-16 16:15] VITALS: BP 112/51
[2019-09-17 06:25] VITALS: BP 98/55
[2019-09-17] MEDS: LITHIUM CARBONATE 300 MG CAP PO SCH ×3 (09:45→21:17)
[2019-09-17] MEDS: NICOTINE POLACRILEX 2 MG GUM PO PRN ×7 (09:45→23:19)
[2019-09-17] MEDS: PALIPERIDONE 3 MG ER TAB (INVEGA) PO SCH ×2 (09:45→21:17)
[2019-09-17 15:37] VITALS: BP 121/65
[2019-09-18 06:42] VITALS: BP 95/50
[2019-09-18] MEDS: NICOTINE POLACRILEX 2 MG GUM PO PRN ×7 (09:42→22:12)
[2019-09-18] MEDS: PALIPERIDONE 3 MG ER TAB (INVEGA) PO SCH ×2 (09:42→20:07)
[2019-09-18] MEDS: LITHIUM CARBONATE 300 MG CAP PO SCH ×3 (09:42→20:07)
[2019-09-18] MEDS: OLANZapine ORAL DISINTEGRATING TAB 5MG PO PRN ×2 (10:39→21:43)
[2019-09-18 15:44] VITALS: BP 111/65
[2019-09-19 06:53] VITALS: BP 117/65
[2019-09-19] MEDS: LITHIUM CARBONATE 300 MG CAP PO SCH ×3 (10:23→20:55)
[2019-09-19] MEDS: PALIPERIDONE 3 MG ER TAB (INVEGA) PO SCH ×2 (10:23→20:56)
[2019-09-19] MEDS: NICOTINE POLACRILEX 2 MG GUM PO PRN ×7 (10:32→23:21)
[2019-09-19] MEDS: OLANZapine ORAL DISINTEGRATING TAB 5MG PO PRN ×3 (10:54→19:07)
[2019-09-19 16:20] VITALS: BP 128/64
[2019-09-20] MEDS: PALIPERIDONE 3 MG ER TAB (INVEGA) PO SCH ×2 (09:13→21:16)
[2019-09-20] MEDS: LITHIUM CARBONATE 300 MG CAP PO SCH ×3 (09:13→21:16)
[2019-09-20] MEDS: NICOTINE POLACRILEX 2 MG GUM PO PRN ×7 (09:39→21:55)
--- NOTE | 2019-09-20 10:04 | MHIPNPDOC ---
[facility] Progress Note Progress Note DATE OF SERVICE: 09/20/19 HISTORY: As per Dr. Childs: "The patient a 34-year-old woman presents to [facility]. She had been released 1 month ago on an injectable anti-psychotic, however, she was found bizarre, talking to herself and was unable to engage in a meaningful interview in the ER due to her severe psychosis. She was admitted, however, when I attempt to speak with her she other than requesting discharge began to go on long diatribes about "[place] crashing" and a number of strange and bizarre delusions. She has been walking around the unit, bizarre, talking to herself and talking to empty rooms. She appears highly psychotic and very ill. She is unable to engage in a meaningful conversation about her symptoms, but appears to have decompensated significantly in her psychotic symptoms. She was also observed in the unit becoming bizarre and knocking on the window very loudly, stating that a patient had escaped when no such event had happened. The patient appears highly confused, unable to care for herself." VITAL SIGNS: See below. NEW TEST RESULTS: See below CURRENT MEDICATIONS: See below. MENTAL STATUS EXAMINATION: MSE Per last Thursday's note: Patient is a 34-year old female, who is dressed in hospital clothes, clean Speech: Is regular rate, normal volume Thought processes including: tangential, disorganized Thought content: Paranoid and bizarre pentecostal delusions ("I'm free from sin, the devil has left me."), she says the Devil is gone now but he wanted to hurt her, somebody has been puling her nose because in that way they can take control of her and is mostly a Mormon and so on. Description of associations: Loose, religiosity Description of abnormal or psychotic thoughts: responding to internal stimuli, AV hallucinations, talks to herself and has paranoid delusions. Judgment: Poor. Insight: Poor. Orientation: x 3. Recent and remote memory: Intact Attention span and concentration: poor Fund of knowledge: Average Mood: "I need to get my kids at [facility]" Affect: anxious, elevated, reactive, manic DIAGNOSES: Schizoaffective Disorder ASSESSMENT: Per staff pt up last night manic with constant rapid speech and delusions of needed to go to [facility] to pick her kids up. Patient currently asleep this am. Is compliant on her invega and lithium. Will given invega sustenna 156mg maintenance dose today as appears to be tolerating it well. Pt is compliant on her lithium and will check lithium level today. Pt continues to be manic, very disorganized and tangential and is having bizarre delusions, religiosity. Her insight remains very poor. She is compliant with her medications that she appears to be tolerating well MANAGEMENT PLAN: continue plan. invega sustenna 156mg im x1 today. lithium level medications: invega 3mg bid lithium 300mg tid invega sustenna 234mg im x1 today TIME SPENT: 30 minutes. Vital Signs Vital Signs Date Time Temp Pulse Resp B/P (MAP) Pulse Ox O2 Delivery O2 Flow Rate FiO2 09/19/19 16:20 98.1 92 18 128/64 (85) 09/19/19 06:53 Room Air Current Medications Current Medications Medications (Trade) Dose Ordered Sig/Fredis Route PRN Reason Start Time Stop Time Status Last Admin Dose Admin Acetaminophen (Tylenol Tab) 650 mg Q6HP PRN PO HEADACHE or DISCOMFORT 09/10/19 05:45 Al Hydrox/Mg Hydrox/Simethicone (Mylanta) 30 ml Q4HP PRN PO HEARTBURN/INDIGESTION 09/10/19 05:45 Clonazepam (KlonoPIN) 2 mg Q6HP PRN PO ANXIETY 09/19/19 21:45 Diphenhydramine HCl (Benadryl) 75 mg STAT STAT PO 09/11/19 21:11 09/11/19 21:14 DC 09/11/19 21:17 Home Med (Med Rec Complete!) ASDIRECTED XX 09/10/19 04:15 09/10/19 04:16 DC Zap Carbonate (Zap Carbonate) 300 mg TID PO 09/15/19 16:00 09/20/19 09:13 Lorazepam (Ativan) 2 mg Q4HP PRN PO ANXIETY/AGITATION 09/12/19 14:45 09/19/19 14:44 DC 09/12/19 14:51 Magnesium Hydroxide (Milk Of Magnesia) 30 ml DAILYPRN PRN PO CONSTIPATION 09/10/19 05:45 Nicotine (Nicoderm Cq 21mg) 1 patch DAILY PRN TD Nicotine Withdrawal 09/10/19 05:45 Cancel Nicotine (Nicorette) 2 mg Q2HP PRN PO SMOKING CESSATION 09/10/19 10:30 09/20/19 09:39 Olanzapine (ZyPREXA ZYDIS) 10 mg Q4HP PRN PO ANXIETY/AGITATION 09/12/19 14:45 09/19/19 19:07 Olanzapine (ZyPREXA ZYDIS) 15 mg STAT STAT PO 09/11/19 19:05 09/11/19 19:07 DC 09/11/19 19:09 Paliperidone (Invega) 3 mg QAM PO 09/16/19 09:00 09/20/19 09:13 Paliperidone (Invega) 3 mg QHS PO 09/10/19 21:00 09/19/19 20:56 Sodium Chloride ([place] Nasal [place]) 2 spray Q2HP PRN NA NASAL DRYNESS 09/13/19 10:15 Trazodone HCl (Desyrel) 50 mg QHSP PRN PO INSOMNIA 09/10/19 05:45 09/15/19 21:54 Allergies Coded Allergies: haloperidol (Verified Allergy, Unknown, 07/06/19) RODRIGUE ARCHULETA DO Sep 20, 2019 10:04 am
[2019-09-20] MEDS: OLANZapine ORAL DISINTEGRATING TAB 5MG PO PRN ×3 (10:21→22:13)
[2019-09-20] MEDS ORDERED: PALIPERIDONE PALMITATE 156MG/1ML INJ(INVEGA)(J2426)(FREE PSY INPT ONLY) IM ONE (12:00)
[2019-09-20 16:32] VITALS: BP 129/72
[2019-09-21] MEDS: NICOTINE POLACRILEX 2 MG GUM PO PRN ×7 (06:33→19:59)
[2019-09-21] MEDS: PALIPERIDONE 3 MG ER TAB (INVEGA) PO SCH (08:26)
[2019-09-21] MEDS: LITHIUM CARBONATE 300 MG CAP PO SCH ×3 (08:27→20:25)
[2019-09-21] MEDS: OLANZapine ORAL DISINTEGRATING TAB 5MG PO PRN ×3 (08:27→20:25)
[2019-09-21] MEDS: **PENDING PPD ENTRY XX SCH (09:00)
--- NOTE | 2019-09-21 09:02 | MHIPNPDOC ---
[facility] Progress Note Progress Note DATE OF SERVICE: 09/21/19 HISTORY: As per Dr. Childs: "The patient a 34-year-old woman presents to [facility]. She had been released 1 month ago on an injectable anti-psychotic, however, she was found bizarre, talking to herself and was unable to engage in a meaningful interview in the ER due to her severe psychosis. She was admitted, however, when I attempt to speak with her she other than requesting discharge began to go on long diatribes about "[place] crashing" and a number of strange and bizarre delusions. She has been walking around the unit, bizarre, talking to herself and talking to empty rooms. She appears highly psychotic and very ill. She is unable to engage in a meaningful conversation about her symptoms, but appears to have decompensated significantly in her psychotic symptoms. She was also observed in the unit becoming bizarre and knocking on the window very loudly, stating that a patient had escaped when no such event had happened. The patient appears highly confused, unable to care for herself." VITAL SIGNS: See below. NEW TEST RESULTS: lithium level 87 therapeutic CURRENT MEDICATIONS: See below. MENTAL STATUS EXAMINATION: MSE Per last Thursday's note: Patient is a 34-year old female, who is dressed in hospital clothes, clean Speech: Is regular rate, normal volume Thought processes including: tangential, disorganized Thought content: Paranoid and bizarre yarsanism delusions ("I'm free from sin, the devil has left me."), she says the Devil is gone now but he wanted to hurt her, somebody has been puling her nose because in that way they can take control of her and is mostly a Latter-Day and so on. Description of associations: Loose, religiosity Description of abnormal or psychotic thoughts: responding to internal stimuli, AV hallucinations, talks to herself and has paranoid delusions. Judgment: Poor. Insight: Poor. Orientation: x 3. Recent and remote memory: Intact Attention span and concentration: poor Fund of knowledge: Average Mood: "I need to get my kids at [facility]" Affect: anxious, elevated, reactive, manic DIAGNOSES: Schizoaffective Disorder ASSESSMENT: Pt seen in milieu stating she needs to go home b/c her children's father is missing and they need her, CPS is involved, can walk home, her kids need her. She did take her second dose of invega yesterday that she tolerated well but still appears hypomanic and delusional that she needs to go home b/c her kids are in danger and need her to care for them. Per staff yesterday pt has been up at night manic with constant rapid speech and delusions of needed to go to [facility] to pick her kids up. She is compliant on her invega and lithium. [place] level 87.0 and therapeutic. Pt continues to be hypomanic, disorganized, tangential and is having bizarre paranoid delusions, religiosity. Her insight remains very poor. She is compliant with her medications that she appears to be tolerating well. MANAGEMENT PLAN: continue plan. medications: invega 6mg bid lithium 300mg tid invega sustenna 234mg im x1 today TIME SPENT: 30 minutes. Vital Signs Vital Signs Date Time Temp Pulse Resp B/P (MAP) Pulse Ox O2 Delivery O2 Flow Rate FiO2 09/21/19 08:06 Room Air 09/20/19 16:32 98.4 92 18 129/72 (91) Laboratory Data 24H Labs Laboratory Tests 2 09/20/19 10:26: [place] Level 0.87 Current Medications Current Medications Medications (Trade) Dose Ordered Sig/Fredis Route PRN Reason Start Time Stop Time Status Last Admin Dose Admin Acetaminophen (Tylenol Tab) 650 mg Q6HP PRN PO HEADACHE or DISCOMFORT 09/10/19 05:45 Al Hydrox/Mg Hydrox/Simethicone (Mylanta) 30 ml Q4HP PRN PO HEARTBURN/INDIGESTION 09/10/19 05:45 Clonazepam (KlonoPIN) 2 mg Q6HP PRN PO ANXIETY 09/19/19 21:45 Diphenhydramine HCl (Benadryl) 75 mg STAT STAT PO 09/11/19 21:11 09/11/19 21:14 DC 09/11/19 21:17 Home Med (Med Rec Complete!) ASDIRECTED XX 09/10/19 04:15 09/10/19 04:16 DC [place] Carbonate ([place] Carbonate) 300 mg TID PO 09/15/19 16:00 09/21/19 08:27 Lorazepam (Ativan) 2 mg Q4HP PRN PO ANXIETY/AGITATION 09/12/19 14:45 09/19/19 14:44 DC 09/12/19 14:51 Magnesium Hydroxide (Milk Of Magnesia) 30 ml DAILYPRN PRN PO CONSTIPATION 09/10/19 05:45 Nicotine (Nicoderm Cq 21mg) 1 patch DAILY PRN TD Nicotine Withdrawal 09/10/19 05:45 Cancel Nicotine (Nicorette) 2 mg Q2HP PRN PO SMOKING CESSATION 09/10/19 10:30 09/21/19 08:35 Olanzapine (ZyPREXA ZYDIS) 10 mg Q4HP PRN PO ANXIETY/AGITATION 09/12/19 14:45 09/21/19 08:27 Olanzapine (ZyPREXA ZYDIS) 15 mg STAT STAT PO 09/11/19 19:05 09/11/19 19:07 DC 09/11/19 19:09 Paliperidone (Invega) 3 mg QAM PO 09/16/19 09:00 09/21/19 08:26 Paliperidone (Invega) 3 mg QHS PO 09/10/19 21:00 09/20/19 21:16 Sodium Chloride ([place] Nasal [place]) 2 spray Q2HP PRN NA NASAL DRYNESS 09/13/19 10:15 Trazodone HCl (Desyrel) 50 mg QHSP PRN PO INSOMNIA 09/10/19 05:45 09/15/19 21:54 Allergies Coded Allergies: haloperidol (Verified Allergy, Unknown, 07/06/19) RODRIGUE ARCHULETA DO Sep 21, 2019 9:02 am
[2019-09-21] MEDS ORDERED: TUBERCULIN PPD 5 UNITS/0.1 ML ID ONE (10:30)
[2019-09-21 16:19] VITALS: BP 135/76
[2019-09-21] MEDS: PALIPERIDONE 6 MG ER TAB (INVEGA) PO SCH (20:25)
[2019-09-22 06:33] VITALS: BP 98/63
[2019-09-22] MEDS: **PENDING PPD ENTRY XX SCH (09:00)
[2019-09-22] MEDS: PALIPERIDONE 6 MG ER TAB (INVEGA) PO SCH ×2 (09:46→20:40)
[2019-09-22] MEDS: LITHIUM CARBONATE 300 MG CAP PO SCH ×3 (09:46→20:41)
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
[2019-09-22] MEDS: NICOTINE POLACRILEX 2 MG GUM PO PRN ×6 (10:09→21:26)
[2019-09-22] MEDS: OLANZapine ORAL DISINTEGRATING TAB 5MG PO PRN ×3 (10:38→19:24)
[2019-09-22 16:35] VITALS: BP 120/80
[2019-09-23 06:46] VITALS: BP 101/59
[2019-09-23] MEDS: **PENDING PPD ENTRY XX SCH (09:00)
[2019-09-23] MEDS: LITHIUM CARBONATE 300 MG CAP PO SCH ×3 (09:30→20:08)
[2019-09-23] MEDS: PALIPERIDONE 6 MG ER TAB (INVEGA) PO SCH (09:30)
[2019-09-23] MEDS: NICOTINE POLACRILEX 2 MG GUM PO PRN ×7 (09:31→22:10)
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
[2019-09-23] MEDS ORDERED: BENZTROPINE 0.5 MG TAB PO ONE (09:45)
[2019-09-23] MEDS ORDERED: PPD DOCUMENTATION ENTRY MISC ID SCH (10:00)
[2019-09-23] MEDS: OLANZapine ORAL DISINTEGRATING TAB 5MG PO PRN (16:16)
[2019-09-23 16:30] VITALS: BP 113/64
[2019-09-23] MEDS: BENZTROPINE 0.5 MG TAB PO SCH (20:08)
[2019-09-24] MEDS: NICOTINE POLACRILEX 2 MG GUM PO PRN ×7 (00:26→21:44)
[2019-09-24 06:14] VITALS: BP 107/57
[2019-09-24] MEDS: **PENDING PPD ENTRY XX SCH (09:00)
[2019-09-24] MEDS: BENZTROPINE 0.5 MG TAB PO SCH ×2 (09:06→20:24)
[2019-09-24] MEDS: LITHIUM CARBONATE 300 MG CAP PO SCH ×3 (09:06→20:24)
[2019-09-24] MEDS: OLANZapine ORAL DISINTEGRATING TAB 5MG PO PRN ×3 (14:22→22:41)
[2019-09-24 16:12] VITALS: BP 129/70
[2019-09-25 06:12] VITALS: BP 100/54
[2019-09-25] MEDS: **PENDING PPD ENTRY XX SCH (09:00)
[2019-09-25] MEDS: LITHIUM CARBONATE 300 MG CAP PO SCH ×3 (10:07→20:34)
[2019-09-25] MEDS: BENZTROPINE 0.5 MG TAB PO SCH ×2 (10:07→20:34)
[2019-09-25] MEDS: NICOTINE POLACRILEX 2 MG GUM PO PRN ×4 (12:24→21:04)
[2019-09-25] MEDS: OLANZapine ORAL DISINTEGRATING TAB 5MG PO PRN ×2 (14:40→18:36)
[2019-09-25 16:00] VITALS: BP 125/87
[2019-09-26 06:22] VITALS: BP 116/65
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
[2019-09-26] MEDS: **PENDING PPD ENTRY XX SCH (09:00)
[2019-09-26] MEDS: BENZTROPINE 0.5 MG TAB PO SCH ×2 (09:59→20:45)
[2019-09-26] MEDS: LITHIUM CARBONATE 300 MG CAP PO SCH ×3 (09:59→20:45)
[2019-09-26] MEDS: NICOTINE POLACRILEX 2 MG GUM PO PRN ×6 (11:03→23:31)
[2019-09-26] MEDS: OLANZapine ORAL DISINTEGRATING TAB 5MG PO PRN ×2 (13:29→19:06)
[2019-09-26 17:06] VITALS: BP 132/72
[2019-09-27 06:37] VITALS: BP 90/50
[2019-09-27] MEDS: BENZTROPINE 0.5 MG TAB PO SCH ×2 (08:47→20:01)
[2019-09-27] MEDS: LITHIUM CARBONATE 300 MG CAP PO SCH ×3 (08:47→20:01)
[2019-09-27] MEDS: **PENDING PPD ENTRY XX SCH (09:00)
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
[2019-09-27 16:23] VITALS: BP 119/68
[2019-09-27] MEDS: OLANZapine ORAL DISINTEGRATING TAB 5MG PO PRN (16:41)
[2019-09-27] MEDS: NICOTINE POLACRILEX 2 MG GUM PO PRN ×3 (17:53→22:03)
[2019-09-28 06:54] VITALS: BP 120/64
[2019-09-28] MEDS: **PENDING PPD ENTRY XX SCH (09:00)
[2019-09-28] MEDS: LITHIUM CARBONATE 300 MG CAP PO SCH ×3 (09:10→20:39)
[2019-09-28] MEDS: BENZTROPINE 0.5 MG TAB PO SCH ×2 (09:11→20:37)
[2019-09-28] MEDS: OLANZapine ORAL DISINTEGRATING TAB 5MG PO PRN ×2 (09:52→14:35)
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
[2019-09-28] MEDS: NICOTINE POLACRILEX 2 MG GUM PO PRN ×4 (12:40→23:05)
[2019-09-28 16:48] VITALS: BP 139/68
[2019-09-29] MEDS: NICOTINE POLACRILEX 2 MG GUM PO PRN ×6 (02:10→20:58)
[2019-09-29] MEDS: clonazePAM 1 MG TAB PO PRN ×2 (02:10→20:44)
[2019-09-29 06:16] VITALS: BP 102/52
[2019-09-29] MEDS: **PENDING PPD ENTRY XX SCH (09:00)
[2019-09-29] MEDS: BENZTROPINE 0.5 MG TAB PO SCH ×2 (09:19→20:30)
[2019-09-29] MEDS: LITHIUM CARBONATE 300 MG CAP PO SCH ×3 (09:19→20:30)
--- NOTE | 2019-09-29 10:35 | MHIPNPDOC ---
[facility] Progress Note Progress Note DATE OF SERVICE: 09/29/19 HISTORY: As per Dr. Childs: "The patient a 34-year-old woman presents to [facility]. She had been released 1 month ago on an injectable anti-psychotic, however, she was found bizarre, talking to herself and was unable to engage in a meaningful interview in the ER due to her severe psychosis. She was admitted, however, when I attempt to speak with her she other than requesting discharge began to go on long diatribes about "[place] crashing" and a number of strange and bizarre delusions. She has been walking around the unit, bizarre, talking to herself and talking to empty rooms. She appears highly psychotic and very ill. She is unable to engage in a meaningful conversation about her symptoms, but appears to have decompensated significantly in her psychotic symptoms. She was also observed in the unit becoming bizarre and knocking on the window very loudly, stating that a patient had escaped when no such event had happened. The patient appears highly confused, unable to care for herself." VITAL SIGNS: See below. NEW TEST RESULTS: lithium level 87 therapeutic CURRENT MEDICATIONS: See below. MENTAL STATUS EXAMINATION: No change from yesterday currently asleep and up in afternoon manic, psychotic, responding to internal stimuli, delusional, talk to self in room loudly often Patient is a 34-year old female, who is dressed in hospital clothes, clean Speech: Is regular rate, normal volume Thought processes including: tangential, disorganized Thought content: Paranoid and bizarre buddhist delusions ("I'm [place]... I talk to God and the Batres... the Batres tells me to go home and go to [place] on Thursday"), grandiose Description of associations: Loose, religiosity Description of abnormal or psychotic thoughts: responding to internal stimuli, AV hallucinations, talks to herself and has paranoid delusions, religiosity. Judgment: Poor. Insight: Poor. Orientation: x 3. Recent and remote memory: Intact Attention span and concentration: poor Fund of knowledge: Average Mood: "I'm [place]" Affect: anxious, elevated, reactive, manic DIAGNOSES: Schizoaffective Disorder ASSESSMENT:Pt seen in her room and asleep after prolixin increased yesterday to 15mg bid for continued psychosis. Per Yesterday's note "Pt seen in her room stating that she's talks to "God" in her room when asked. States [facility] a devise in her head and that her brother is working for the [employer] and talking to her here. She is still very delusions, bizarre but less hyperverbal. States she[place] with [place] [facility] Pt is complaint on her prolixin started last week and will see if rachelle, psychosis, AH (talking and answering in a different voice herself in her room), responding to internal stimuli, religiosity talking of God and the Batres often, delusions of being . Her insight and judgement is very poor. She is compliant on her lithium which appears to be aiding mildly her rachelle and psychosis as she is still asleep this morning. [place] level 87.0 and therapeutic. Pt continues to be hypomanic, disorganized, responding to internal stimuli and talking to self loudly, tangential and is having bizarre paranoid delusions, religiosity. Her insight remains very poor. She is compliant with her medications that she appears to be tolerating well. [facility] submitted last week for transfer [place] [facility] [place] [place] as pt symptoms only show mild improvement with invega sustenna, prolixin oral, and lithium."" MANAGEMENT PLAN: [facility] submitted yesterday for transfer [place] [facility] [place] [facility] [place]. d/c oral invega and increase prolixin for psychosis and cogentin for eps medications: prolixin 15mg bid cogentin 0.5mg bid lithium 300mg tid invega sustenna 234mg im 09/14/19 invega [id number] im 09/20/19 TIME SPENT: 30 minutes. Vital Signs Vital Signs Date Time Temp Pulse Resp B/P (MAP) Pulse Ox O2 Delivery O2 Flow Rate FiO2 09/29/19 06:16 97.8 63 18 102/52 (69) Current Medications Current Medications Medications (Trade) Dose Ordered Sig/Fredis Route PRN Reason Start Time Stop Time Status Last Admin Dose Admin Acetaminophen (Tylenol Tab) 650 mg Q6HP PRN PO HEADACHE or DISCOMFORT 09/10/19 05:45 Al Hydrox/Mg Hydrox/Simethicone (Mylanta) 30 ml Q4HP PRN PO HEARTBURN/INDIGESTION 09/10/19 05:45 Benztropine Mesylate (Cogentin) 0.5 mg BID PO 09/23/19 21:00 09/29/19 09:19 Clonazepam (KlonoPIN) 2 mg Q6HP PRN PO ANXIETY 09/19/19 21:45 09/29/19 02:10 Diphenhydramine HCl (Benadryl) 75 mg STAT STAT PO 09/11/19 21:11 09/11/19 21:14 DC 09/11/19 21:17 Fluphenazine HCl (Prolixin) 10 mg BID PO 09/23/19 21:00 09/28/19 11:23 DC 09/28/19 09:11 Fluphenazine HCl (Prolixin) 15 mg QAM PO 09/29/19 09:00 09/29/19 09:19 Fluphenazine HCl (Prolixin) 15 mg QHS PO 09/28/19 21:00 09/28/19 20:38 Home Med (Med Rec Complete!) ASDIRECTED XX 09/10/19 04:15 09/10/19 04:16 DC [place] Carbonate ([place] Carbonate) 300 mg TID PO 09/15/19 16:00 09/29/19 09:19 Lorazepam (Ativan) 2 mg Q4HP PRN PO ANXIETY/AGITATION 09/12/19 14:45 09/19/19 14:44 DC 09/12/19 14:51 Magnesium Hydroxide (Milk Of Magnesia) 30 ml DAILYPRN PRN PO CONSTIPATION 09/10/19 05:45 Miscellaneous (Unresolved Clarification Entry) SEE LABEL COMMENTS DAILY XX 09/26/19 09:00 09/26/19 11:16 DC Nicotine (Nicoderm Cq 21mg) 1 patch DAILY PRN TD Nicotine Withdrawal 09/10/19 05:45 Cancel Nicotine (Nicorette) 2 mg Q2HP PRN PO SMOKING CESSATION 09/10/19 10:30 09/29/19 02:10 Non-Formulary Medication ( See Comment Field Below ) SEE COMMENTS SECTION 1T@10 ID 09/23/19 10:00 09/21/19 10:40 DC Non-Formulary Medication ( See Comment Field Below ) SEE LABEL COMMENTS DAILY XX 09/21/19 09:00 Olanzapine (ZyPREXA ZYDIS) 10 mg Q4HP PRN PO ANXIETY/AGITATION 09/12/19 14:45 09/28/19 14:35 Olanzapine (ZyPREXA ZYDIS) 15 mg STAT STAT PO 09/11/19 19:05 09/11/19 19:07 DC 09/11/19 19:09 Paliperidone (Invega) 3 mg QAM PO 09/16/19 09:00 09/21/19 09:03 DC 09/21/19 08:26 Paliperidone (Invega) 3 mg QHS PO 09/10/19 21:00 09/21/19 09:02 DC 09/20/19 21:16 Paliperidone (Invega) 6 mg BID PO 09/21/19 21:00 09/23/19 09:33 DC 09/23/19 09:30 Sodium Chloride ([place] Nasal [place]) 2 spray Q2HP PRN NA NASAL DRYNESS 09/13/19 10:15 Trazodone HCl (Desyrel) 50 mg QHSP PRN PO INSOMNIA 09/10/19 05:45 09/15/19 21:54 Allergies Coded Allergies: haloperidol (Verified Allergy, Unknown, 07/06/19) RODRIGUE ARCHULETA DO Sep 29, 2019 10:35 am
[2019-09-29] MEDS: OLANZapine ORAL DISINTEGRATING TAB 5MG PO PRN ×2 (13:33→18:26)
[2019-09-29 16:48] VITALS: BP 126/68
[2019-09-30 06:21] VITALS: BP 100/54
--- NOTE | 2019-09-30 09:50 | MHIPNPDOC ---
[facility] Progress Note Progress Note DATE OF SERVICE: 09/30/19 HISTORY: As per Dr. Childs: "The patient a 34-year-old woman presents to [facility]. She had been released 1 month ago on an injectable anti-psychotic, however, she was found bizarre, talking to herself and was unable to engage in a meaningful interview in the ER due to her severe psychosis. She was admitted, however, when I attempt to speak with her she other than requesting discharge began to go on long diatribes about "[place] crashing" and a number of strange and bizarre delusions. She has been walking around the unit, bizarre, talking to herself and talking to empty rooms. She appears highly psychotic and very ill. She is unable to engage in a meaningful conversation about her symptoms, but appears to have decompensated significantly in her psychotic symptoms. She was also observed in the unit becoming bizarre and knocking on the window very loudly, stating that a patient had escaped when no such event had happened. The patient appears highly confused, unable to care for herself." VITAL SIGNS: See below. NEW TEST RESULTS: lithium level 87 therapeutic CURRENT MEDICATIONS: See below. MENTAL STATUS EXAMINATION: No change from yesterday currently asleep and up in afternoon manic, psychotic, responding to internal stimuli, delusional, talk to self in room loudly often Patient is a 34-year old female, who is dressed in hospital clothes, clean Speech: Is regular rate, normal volume Thought processes including: tangential, disorganized Thought content: Paranoid and bizarre spiritism delusions ("I'm [place]... I talk to God and the Batres... the Batres tells me to go home and go to [place]'s jehovah's witness on Thursday"), grandiose Description of associations: Loose, religiosity Description of abnormal or psychotic thoughts: responding to internal stimuli, AV hallucinations, talks to herself and has paranoid delusions, religiosity. Judgment: Poor. Insight: Poor. Orientation: x 3. Recent and remote memory: Intact Attention span and concentration: poor Fund of knowledge: Average Mood: "I'm [place]" Affect: anxious, elevated, reactive, manic DIAGNOSES: Schizoaffective Disorder ASSESSMENT:Pt seen in her room and asleep after prolixin increased yesterday to 15mg bid for continued psychosis. Per Yesterday's note "Pt seen in her room stating that she's talks to "God" in her room when asked. States the [facility] implanted a devise in her head and that her brother is working for the [employer] and talking to her here. She is still very delusions, bizarre but less hyperverbal. States she's ok with going to [facility]. Pt is complaint on her prolixin started last week and will see if rachelle, psychosis, AH (talking and answering in a different voice herself in her room), responding to internal stimuli, religiosity talking of God and the Batres often, delusions of being . Her insight and judgement is very poor. She is compliant on her lithium which appears to be aiding mildly her rachelle and psychosis as she is still asleep this morning. [place] level 87.0 and therapeutic. Pt continues to be hypomanic, disorganized, responding to internal stimuli and talking to self loudly, tangential and is having bizarre paranoid delusions, religiosity. Her insight remains very poor. She is compliant with her medications that she appears to be tolerating well. [facility] submitted last week for transfer to [facility] for prison treatment as pt symptoms only show mild improvement with invega sustenna, prolixin oral, and lithium."" MANAGEMENT PLAN: [facility] submitted yesterday for transfer to [facility] for prison elisa tment. d/c oral invega and increase prolixin for psychosis and cogentin for eps medications: prolixin 15mg bid cogentin 0.5mg bid lithium 300mg tid invega sustenna 234mg im 09/14/19 invega [id number] im 09/20/19 TIME SPENT: 30 minutes. Vital Signs Vital Signs Date Time Temp Pulse Resp B/P (MAP) Pulse Ox O2 Delivery O2 Flow Rate FiO2 09/30/19 06:21 98.4 54 16 100/54 (69) Current Medications Current Medications Medications (Trade) Dose Ordered Sig/Fredis Route PRN Reason Start Time Stop Time Status Last Admin Dose Admin Acetaminophen (Tylenol Tab) 650 mg Q6HP PRN PO HEADACHE or DISCOMFORT 09/10/19 05:45 Al Hydrox/Mg Hydrox/Simethicone (Mylanta) 30 ml Q4HP PRN PO HEARTBURN/INDIGESTION 09/10/19 05:45 Benztropine Mesylate (Cogentin) 0.5 mg BID PO 09/23/19 21:00 09/29/19 20:30 Clonazepam (KlonoPIN) 2 mg Q6HP PRN PO ANXIETY 09/19/19 21:45 09/29/19 20:44 Diphenhydramine HCl (Benadryl) 75 mg STAT STAT PO 09/11/19 21:11 09/11/19 21:14 DC 09/11/19 21:17 Fluphenazine HCl (Prolixin) 10 mg BID PO 09/23/19 21:00 09/28/19 11:23 DC 09/28/19 09:11 Fluphenazine HCl (Prolixin) 15 mg QAM PO 09/29/19 09:00 09/29/19 09:19 Fluphenazine HCl (Prolixin) 15 mg QHS PO 09/28/19 21:00 09/29/19 20:30 Home Med (Med Rec Complete!) ASDIRECTED XX 09/10/19 04:15 09/10/19 04:16 DC [place] Carbonate ([place] Carbonate) 300 mg TID PO 09/15/19 16:00 09/29/19 20:30 Lorazepam (Ativan) 2 mg Q4HP PRN PO ANXIETY/AGITATION 09/12/19 14:45 09/19/19 14:44 DC 09/12/19 14:51 Magnesium Hydroxide (Milk Of Magnesia) 30 ml DAILYPRN PRN PO CONSTIPATION 09/10/19 05:45 Miscellaneous (Unresolved Clarification Entry) SEE LABEL COMMENTS DAILY XX 09/26/19 09:00 09/26/19 11:16 DC Nicotine (Nicoderm Cq 21mg) 1 patch DAILY PRN TD Nicotine Withdrawal 09/10/19 05:45 Cancel Nicotine (Nicorette) 2 mg Q2HP PRN PO SMOKING CESSATION 09/10/19 10:30 09/29/19 20:58 Non-Formulary Medication ( See Comment Field Below ) SEE COMMENTS SECTION 1T@10 ID 09/23/19 10:00 09/21/19 10:40 DC Non-Formulary Medication ( See Comment Field Below ) SEE LABEL COMMENTS DAILY XX 09/21/19 09:00 Olanzapine (ZyPREXA ZYDIS) 10 mg Q4HP PRN PO ANXIETY/AGITATION 09/12/19 14:45 09/29/19 18:26 Olanzapine (ZyPREXA ZYDIS) 15 mg STAT STAT PO 09/11/19 19:05 09/11/19 19:07 DC 09/11/19 19:09 Paliperidone (Invega) 3 mg QAM PO 09/16/19 09:00 09/21/19 09:03 DC 09/21/19 08:26 Paliperidone (Invega) 3 mg QHS PO 09/10/19 21:00 09/21/19 09:02 DC 09/20/19 21:16 Paliperidone (Invega) 6 mg BID PO 09/21/19 21:00 09/23/19 09:33 DC 09/23/19 09:30 Sodium Chloride ([place] Nasal [place]) 2 spray Q2HP PRN NA NASAL DRYNESS 09/13/19 10:15 Trazodone HCl (Desyrel) 50 mg QHSP PRN PO INSOMNIA 09/10/19 05:45 09/15/19 21:54 Allergies Coded Allergies: haloperidol (Verified Allergy, Unknown, 07/06/19) RODRIGUE ARCHULETA DO Sep 30, 2019 9:50 am
--- NOTE | 2019-09-30 10:29 | MHIPNPDOC ---
[facility] Progress Note Progress Note DATE OF SERVICE: 09/30/19 HISTORY: As per Dr. Childs: "The patient a 34-year-old woman presents to [facility]. She had been released 1 month ago on an injectable anti-psychotic, however, she was found bizarre, talking to herself and was unable to engage in a meaningful interview in the ER due to her severe psychosis. She was admitted, however, when I attempt to speak with her she other than requesting discharge began to go on long diatribes about "[place] crashing" and a number of strange and bizarre delusions. She has been walking around the unit, bizarre, talking to herself and talking to empty rooms. She appears highly psychotic and very ill. She is unable to engage in a meaningful conversation about her symptoms, but appears to have decompensated significantly in her psychotic symptoms. She was also observed in the unit becoming bizarre and knocking on the window very loudly, stating that a patient had escaped when no such event had happened. The patient appears highly confused, unable to care for herself." VITAL SIGNS: See below. NEW TEST RESULTS: lithium level 87 therapeutic CURRENT MEDICATIONS: See below. MENTAL STATUS EXAMINATION: No change from yesterday currently asleep and up in afternoon manic, psychotic, responding to internal stimuli, delusional, talk to self in room loudly often Patient is a 34-year old female, who is dressed in hospital clothes, clean Speech: Is regular rate, normal volume Thought processes including: tangential, disorganized Thought content: Paranoid and bizarre baptist delusions ("I'm [place] E[place]... I talk to God and the Batres... the Batres tells me to go home and go to [place]'s mormon on Thursday"), grandiose Description of associations: Loose, religiosity Description of abnormal or psychotic thoughts: responding to internal stimuli, AV hallucinations, talks to herself and has paranoid delusions, religiosity. Judgment: Poor. Insight: Poor. Orientation: x 3. Recent and remote memory: Intact Attention span and concentration: poor Fund of knowledge: Average Mood: "I'm [place]" Affect: anxious, elevated, reactive, manic DIAGNOSES: Schizoaffective Disorder ASSESSMENT:Pt seen in her room and asleep. Per nursing, pt is showing only mild improvement in psychosis and rachelle, response to internal stimuli even with increase in prolixin that she appears to be tolerating well. Awaiting admission to [facility] for snf treatment in near future. Per Yesterday's note "Pt seen in her room stating that she's talks to "God" in her room when asked. States the [facility] implanted a devise in her head and that her brother is working for the [employer] and talking to her here. She is still very delusions, bizarre but less hyperverbal. States she's ok with going to [facility]. Pt is complaint on her prolixin started last week and will see if rachelle, psychosis, AH (talking and answering in a different voice herself in her room), responding to internal stimuli, religiosity talking of God and the Batres often, delusions of being . Her insight and judgement is very poor. She is compliant on her lithium which appears to be aiding mildly her rachelle and psychosis as she is still asleep this morning. [place] level 87.0 and therapeutic. Pt continues to be hypomanic, disorganized, responding to internal stimuli and talking to self loudly, tangential and is having bizarre paranoid delusions, religiosity. Her insight remains very poor. She is compliant with her medications that she appears to be tolerating well. [facility] submitted last week for transfer to [facility] for director long term care treatment as pt symptoms only show mild improvement with invega sustenna, prolixin oral, and lithium."" MANAGEMENT PLAN: [facility] submitted yesterday for transfer to [facility] for director long term care treatment. d/c oral invega and increase prolixin for psychosis and cogentin for eps medications: prolixin 15mg bid cogentin 0.5mg bid lithium 300mg tid invega sustenna 234mg im 09/14/19 invega [id number] im 09/20/19 TIME SPENT: 30 minutes. Vital Signs Vital Signs Date Time Temp Pulse Resp B/P (MAP) Pulse Ox O2 Delivery O2 Flow Rate FiO2 09/30/19 06:21 98.4 54 16 100/54 (69) Current Medications Current Medications Medications (Trade) Dose Ordered Sig/Fredis Route PRN Reason Start Time Stop Time Status Last Admin Dose Admin Acetaminophen (Tylenol Tab) 650 mg Q6HP PRN PO HEADACHE or DISCOMFORT 09/10/19 05:45 Al Hydrox/Mg Hydrox/Simethicone (Mylanta) 30 ml Q4HP PRN PO HEARTBURN/INDIGESTION 09/10/19 05:45 Benztropine Mesylate (Cogentin) 0.5 mg BID PO 09/23/19 21:00 09/29/19 20:30 Clonazepam (KlonoPIN) 2 mg Q6HP PRN PO ANXIETY 09/19/19 21:45 09/29/19 20:44 Diphenhydramine HCl (Benadryl) 75 mg STAT STAT PO 09/11/19 21:11 09/11/19 21:14 DC 09/11/19 21:17 Fluphenazine HCl (Prolixin) 10 mg BID PO 09/23/19 21:00 09/28/19 11:23 DC 09/28/19 09:11 Fluphenazine HCl (Prolixin) 15 mg QAM PO 09/29/19 09:00 09/29/19 09:19 Fluphenazine HCl (Prolixin) 15 mg QHS PO 09/28/19 21:00 09/29/19 20:30 Home Med (Med Rec Complete!) ASDIRECTED XX 09/10/19 04:15 09/10/19 04:16 DC [place] Carbonate ([place] Carbonate) 300 mg TID PO 09/15/19 16:00 09/29/19 20:30 Lorazepam (Ativan) 2 mg Q4HP PRN PO ANXIETY/AGITATION 09/12/19 14:45 09/19/19 14:44 DC 09/12/19 14:51 Magnesium Hydroxide (Milk Of Magnesia) 30 ml DAILYPRN PRN PO CONSTIPATION 09/10/19 05:45 Miscellaneous (Unresolved Clarification Entry) SEE LABEL COMMENTS DAILY XX 09/26/19 09:00 09/26/19 11:16 DC Nicotine (Nicoderm Cq 21mg) 1 patch DAILY PRN TD Nicotine Withdrawal 09/10/19 05:45 Cancel Nicotine (Nicorette) 2 mg Q2HP PRN PO SMOKING CESSATION 09/10/19 10:30 09/29/19 20:58 Non-Formulary Medication ( See Comment Field Below ) SEE COMMENTS SECTION 1T@10 ID 09/23/19 10:00 09/21/19 10:40 DC Non-Formulary Medication ( See Comment Field Below ) SEE LABEL COMMENTS DAILY XX 09/21/19 09:00 Olanzapine (ZyPREXA ZYDIS) 10 mg Q4HP PRN PO ANXIETY/AGITATION 09/12/19 14:45 09/29/19 18:26 Olanzapine (ZyPREXA ZYDIS) 15 mg STAT STAT PO 09/11/19 19:05 09/11/19 19:07 DC 09/11/19 19:09 Paliperidone (Invega) 3 mg QAM PO 09/16/19 09:00 09/21/19 09:03 DC 09/21/19 08:26 Paliperidone (Invega) 3 mg QHS PO 09/10/19 21:00 09/21/19 09:02 DC 09/20/19 21:16 Paliperidone (Invega) 6 mg BID PO 09/21/19 21:00 09/23/19 09:33 DC 09/23/19 09:30 Sodium Chloride ([place] Nasal [place]) 2 spray Q2HP PRN NA NASAL DRYNESS 09/13/19 10:15 Trazodone HCl (Desyrel) 50 mg QHSP PRN PO INSOMNIA 09/10/19 05:45 09/15/19 21:54 Allergies Coded Allergies: haloperidol (Verified Allergy, Unknown, 07/06/19) RODRIGUE ARCHULETA DO Sep 30, 2019 10:29 am
[2019-09-30] MEDS: BENZTROPINE 0.5 MG TAB PO SCH ×2 (10:38→20:21)
[2019-09-30] MEDS: LITHIUM CARBONATE 300 MG CAP PO SCH ×3 (10:39→20:21)
[2019-09-30] MEDS: **PENDING PPD ENTRY XX SCH (10:45)
[2019-09-30] MEDS: NICOTINE POLACRILEX 2 MG GUM PO PRN ×6 (10:56→22:29)
[2019-09-30] MEDS: OLANZapine ORAL DISINTEGRATING TAB 5MG PO PRN ×2 (11:32→21:25)
[2019-09-30 16:10] VITALS: BP 104/57
[2019-10-01] MEDS: traZODone 50 MG TAB PO PRN (00:33)
[2019-10-01 06:41] VITALS: BP 90/52
[2019-10-01] MEDS: **PENDING PPD ENTRY XX SCH (09:00)
[2019-10-01] MEDS: BENZTROPINE 0.5 MG TAB PO SCH ×2 (09:42→20:54)
[2019-10-01] MEDS: LITHIUM CARBONATE 300 MG CAP PO SCH ×3 (09:42→20:55)
[2019-10-01] MEDS: OLANZapine ORAL DISINTEGRATING TAB 5MG PO PRN ×3 (14:26→22:40)
[2019-10-01] MEDS: NICOTINE POLACRILEX 2 MG GUM PO PRN ×5 (14:47→23:00)
[2019-10-01 16:01] VITALS: BP 110/57
[2019-10-02 06:29] VITALS: BP 111/60
[2019-10-02] MEDS: **PENDING PPD ENTRY XX SCH (09:00)
[2019-10-02] MEDS: LITHIUM CARBONATE 300 MG CAP PO SCH ×3 (09:40→20:14)
[2019-10-02] MEDS: BENZTROPINE 0.5 MG TAB PO SCH ×2 (09:40→20:14)
[2019-10-02] MEDS: OLANZapine ORAL DISINTEGRATING TAB 5MG PO PRN ×3 (11:29→20:17)
[2019-10-02 15:47] VITALS: BP 119/56
[2019-10-02] MEDS: NICOTINE POLACRILEX 2 MG GUM PO PRN (21:21)
[2019-10-03 06:49] VITALS: BP 130/83
[2019-10-03] MEDS: **PENDING PPD ENTRY XX SCH (09:00)
[2019-10-03] MEDS: LITHIUM CARBONATE 300 MG CAP PO SCH ×3 (09:33→20:56)
[2019-10-03] MEDS: BENZTROPINE 0.5 MG TAB PO SCH ×2 (09:33→20:56)
--- NOTE | 2019-10-03 09:56 | MHIPNPDOC ---
[facility] Progress Note Progress Note DATE OF SERVICE: 10/03/19 HISTORY: As per Dr. Childs: "The patient a 34-year-old woman presents to [facility]. She had been released 1 month ago on an injectable anti-psychotic, however, she was found bizarre, talking to herself and was unable to engage in a meaningful interview in the ER due to her severe psychosis. She was admitted, however, when I attempt to speak with her she other than requesting discharge began to go on long diatribes about "[place] crashing" and a number of strange and bizarre delusions. She has been walking around the u nit, bizarre, talking to herself and talking to empty rooms. She appears highly psychotic and very ill. She is unable to engage in a meaningful conversation about her symptoms, but appears to have decompensated significantly in her psychotic symptoms. She was also observed in the unit becoming bizarre and knocking on the window very loudly, stating that a patient had escaped when no such event had happened. The patient appears highly confused, unable to care for herself." VITAL SIGNS: See below. NEW TEST RESULTS: lithium level 87 therapeutic CURRENT MEDICATIONS: See below. MENTAL STATUS EXAMINATION: No change from Thursday , continues to be delusional, tangential, religiously preoccupied, responding to internal stimuli, talk to walker in her room when alone (heard in nurses' station) Speech: Is regular rate, normal volume Thought processes including: tangential, disorganized Thought content: Paranoid and bizarre mu-ism delusions (over heard talking to god often when pt alone in her room), grandiose Description of associations: Loose, religiosity Description of abnormal or psychotic thoughts: responding to internal stimuli, AV hallucinations, talks to herself and has paranoid delusions, religiosity. Judgment: Poor. Insight: Poor. Orientation: x 3. Recent and remote memory: Intact Attention span and concentration: poor Fund of knowledge: Average Mood: "ok" Affect: less anxious, elevated, reactive, manic DIAGNOSES: Schizoaffective Disorder ASSESSMENT:Pt seen in her room and asleep but arrousable and stated she was ok when asked then went back to sleep. Per nursing, pt is showing only mild improvement in psychosis and rachelle, response to internal stimuli as was praying less over the weekend. Appears to be tolerating prolixin with some improvement in psychosis. Awaiting admission to [facility] for extermination inspector treatment in near future. Per last week's note "Pt seen in her room stating that she's talks to "God" in her room when asked. States the [facility] implanted a devise in her head and that her brother is working for the [employer] and talking to her here. She is still very delusions, bizarre but less hyperverbal. States she's ok with going to [facility]. Pt is complaint on her prolixin started last week and will see if rachelle, psychosis, AH (talking and answering in a different voice herself in her room), responding to internal stimuli, religiosity talking of God and the [place] often, delusions of being ." Her insight and judgement is very poor. She is c ompliant on her lithium which appears to be aiding mildly her rachelle and psychosis as she is still asleep this morning. [place] level 87.0 and therapeutic. Pt continues to be hypomanic, disorganized, responding to internal stimuli and talking to self loudly, tangential and is having bizarre paranoid delusions, religiosity. Her insight remains very poor. She is compliant with her medications that she appears to be tolerating well. [facility] submitted last week for transfer to [facility] for extermination inspector treatment as pt symptoms only show mild improvement with invega sustenna, prolixin oral, and lithium. MANAGEMENT PLAN: [facility] submitted yesterday for transfer to [facility] for chcf treatment. d/c oral invega and increase prolixin for psychosis and cogentin for eps medications: prolixin 15mg bid cogentin 0.5mg bid lithium 300mg tid invega sustenna 234mg im 09/14/19 invega [id number] im 09/20/19 TIME SPENT: 30 minutes. Vital Signs Vital Signs Date Time Temp Pulse Resp B/P (MAP) Pulse Ox O2 Delivery O2 Flow Rate FiO2 10/03/19 06:49 98.6 77 16 130/83 (99) 10/02/19 06:29 Room Air Current Medications Current Medications Medications (Trade) Dose Ordered Sig/Fredis Route PRN Reason Start Time Stop Time Status Last Admin Dose Admin Acetaminophen (Tylenol Tab) 650 mg Q6HP PRN PO HEADACHE or DISCOMFORT 09/10/19 05:45 Al Hydrox/Mg Hydrox/Simethicone (Mylanta) 30 ml Q4HP PRN PO HEARTBURN/INDIGESTION 09/10/19 05:45 Benztropine Mesylate (Cogentin) 0.5 mg BID PO 09/23/19 21:00 10/02/19 20:14 Clonazepam (KlonoPIN) 2 mg Q6HP PRN PO ANXIETY 09/19/19 21:45 09/29/19 20:44 Diphenhydramine HCl (Benadryl) 75 mg STAT STAT PO 09/11/19 21:11 09/11/19 21:14 DC 09/11/19 21:17 Fluphenazine HCl (Prolixin) 10 mg BID PO 09/23/19 21:00 09/28/19 11:23 DC 09/28/19 09:11 Fluphenazine HCl (Prolixin) 15 mg QAM PO 09/29/19 09:00 10/02/19 09:41 Fluphenazine HCl (Prolixin) 15 mg QHS PO 09/28/19 21:00 10/02/19 20:15 Home Med (Med Rec Complete!) ASDIRECTED XX 09/10/19 04:15 09/10/19 04:16 DC [place] Carbonate ([place] Carbonate) 300 mg TID PO 09/15/19 16:00 10/02/19 20:14 Lorazepam (Ativan) 2 mg Q4HP PRN PO ANXIETY/AGITATION 09/12/19 14:45 09/19/19 14:44 DC 09/12/19 14:51 Magnesium Hydroxide (Milk Of Magnesia) 30 ml DAILYPRN PRN PO CONSTIPATION 09/10/19 05:45 Miscellaneous (Unresolved Clarification Entry) SEE LABEL COMMENTS DAILY XX 09/26/19 09:00 09/26/19 11:16 DC Nicotine (Nicoderm Cq 21mg) 1 patch DAILY PRN TD Nicotine Withdrawal 09/10/19 05:45 Cancel Nicotine (Nicorette) 2 mg Q2HP PRN PO SMOKING CESSATION 09/10/19 10:30 10/02/19 21:21 Non-Formulary Medication ( See Comment Field Below ) SEE COMMENTS SECTION 1T@10 ID 09/23/19 10:00 09/21/19 10:40 DC Non-Formulary Medication ( See Comment Field Below ) SEE LABEL COMMENTS DAILY XX 09/21/19 09:00 Olanzapine (ZyPREXA ZYDIS) 10 mg Q4HP PRN PO ANXIETY/AGITATION 09/12/19 14:45 10/02/19 20:17 Olanzapine (ZyPREXA ZYDIS) 15 mg STAT STAT PO 09/11/19 19:05 09/11/19 19:07 DC 09/11/19 19:09 Paliperidone (Invega) 3 mg QAM PO 09/16/19 09:00 09/21/19 09:03 DC 09/21/19 08:26 Paliperidone (Invega) 3 mg QHS PO 09/10/19 21:00 09/21/19 09:02 DC 09/20/19 21:16 Paliperidone (Invega) 6 mg BID PO 09/21/19 21:00 09/23/19 09:33 DC 09/23/19 09:30 Sodium Chloride ([place] Nasal [place]) 2 spray Q2HP PRN NA NASAL DRYNESS 09/13/19 10:15 Trazodone HCl (Desyrel) 50 mg QHSP PRN PO INSOMNIA 09/10/19 05:45 10/01/19 00:33 Allergies Coded Allergies: haloperidol (Verified Allergy, Unknown, 07/06/19) RODRIGUE ARCHULETA DO Oct 03, 2019 9:16 am
[2019-10-03] MEDS: OLANZapine ORAL DISINTEGRATING TAB 5MG PO PRN (14:47)
[2019-10-03 16:49] VITALS: BP 121/62
[2019-10-03] MEDS: NICOTINE POLACRILEX 2 MG GUM PO PRN (17:38)
[2019-10-04 06:04] VITALS: BP 100/52
[2019-10-04] MEDS: **PENDING PPD ENTRY XX SCH (09:00)
--- NOTE | 2019-10-04 09:16 | MHIPNPDOC ---
[facility] Progress Note Progress Note DATE OF SERVICE: 10/04/19 HISTORY: As per Dr. Childs: "The patient a 34-year-old woman presents to [facility]. She had been released 1 month ago on an injectable anti-psychotic, however, she was found bizarre, talking to herself and was unable to engage in a meaningful interview in the ER due to her severe psychosis. She was admitted, however, when I attempt to speak with her she other than requesting discharge began to go on long diatribes about "[place] crashing" and a number of strange and bizarre delusions. She has been walking around the unit, bizarre, talking to herself and talking to empty rooms. She appears highly psychotic and very ill. She is unable to engage in a meaningful conversation about her symptoms, but appears to have decompensated significantly in her psychotic symptoms. She was also observed in the unit becoming bizarre and knocking on the window very loudly, stating that a patient had escaped when no such event had happened. The patient appears highly confused, unable to care for herself." VITAL SIGNS: See below. NEW TEST RESULTS: lithium level 87 therapeutic CURRENT MEDICATIONS: See below. MENTAL STATUS EXAMINATION: No change from Thursday , continues to be delusional, tangential, religiously preoccupied, responding to internal stimuli, talk to walker in her room when alone (heard in nurses' station) Speech: Is regular rate, normal volume Thought processes including: tangential, disorganized Thought content: Paranoid and bizarre evangelical delusions (over heard talking to god often when pt alone in her room), grandiose Description of associations: Loose, religiosity Description of abnormal or psychotic thoughts: responding to internal stimuli, AV hallucinations, talks to herself and has paranoid delusions, religiosity. Judgment: Poor. Insight: Poor. Orientation: x 3. Recent and remote memory: Intact Attention span and concentration: poor Fund of knowledge: Average Mood: "ok" Affect: less anxious, elevated, reactive, manic DIAGNOSES: Schizoaffective Disorder ASSESSMENT:Pt seen in her room and asleep. Per nursing, pt continues to show only mild improvement in psychosis and rachelle, response to internal stimuli as was praying less over the weekend. Pt overheard later in the day in the nurses station singing and talking fluidly to herself and her brother and TLS. Appears to be tolerating prolixin with some improvement in psychosis. Awaiting admission to [facility] for watcher automat long goods treatment in near future. Per last week's note "Pt seen in her room stating that she's talks to "God" in her room when asked. States the [facility] implanted a devise in her head and that her brother is working for the [employer] and talking to her here. She is still very delusions, bizarre but less hyperverbal. States she's ok with going to [facility]. Pt is complaint on her prolixin started last week and will see if rachelle, psychosis, AH (talking and answering in a different voice herself in her room), responding to internal stimuli, religiosity talking of God and the [place] often, delusions of being ." Her insight and judgement is very poor. She is compliant on her lithium which appears to be aiding mildly her rachelle and psychosis as she is still asleep this morning. [place] level 87.0 and therapeutic. Pt continues to be hypomanic, disorganized, responding to internal stimuli and talking to self loudly, tangential and is having bizarre paranoid delusions, religiosity. Her i nsight remains very poor. She is compliant with her medications that she appears to be tolerating well. [facility] submitted last week for transfer to [facility] for watcher automat long goods treatment as pt symptoms only show mild improvement with invega sustenna, prolixin oral, and lithium. MANAGEMENT PLAN: [facility] submitted yesterday for transfer to [facility] for watcher automat long goods treatment. d/c oral invega and increase prolixin for psychosis and cogentin for eps medications: prolixin 15mg bid cogentin 0.5mg bid lithium 300mg tid invega sustenna 234mg im 09/14/19 invega [id number] im 09/20/19 TIME SPENT: 30 minutes. Vital Signs Vital Signs Date Time Temp Pulse Resp B/P (MAP) Pulse Ox O2 Delivery O2 Flow Rate FiO2 10/04/19 06:04 97.4 58 16 100/52 (68) 10/02/19 06:29 Room Air Current Medications Current Medications Medications (Trade) Dose Ordered Sig/Fredis Route PRN Reason Start Time Stop Time Status Last Admin Dose Admin Acetaminophen (Tylenol Tab) 650 mg Q6HP PRN PO HEADACHE or DISCOMFORT 11/30/19 05:45 Al Hydrox/Mg Hydrox/Simethicone (Mylanta) 30 ml Q4HP PRN PO HEARTBURN/INDIGESTION 09/10/19 05:45 Benztropine Mesylate (Cogentin) 0.5 mg BID PO 09/23/19 21:00 10/03/19 20:56 Clonazepam (KlonoPIN) 2 mg Q6HP PRN PO ANXIETY 09/19/19 21:45 10/03/19 11:14 DC 09/29/19 20:44 Diphenhydramine HCl (Benadryl) 75 mg STAT STAT PO 09/11/19 21:11 09/11/19 21:14 DC 09/11/19 21:17 Fluphenazine HCl (Prolixin) 10 mg BID PO 09/23/19 21:00 09/28/19 11:23 DC 09/28/19 09:11 Fluphenazine HCl (Prolixin) 15 mg QAM PO 09/29/19 09:00 10/03/19 09:33 Fluphenazine HCl (Prolixin) 15 mg QHS PO 09/28/19 21:00 10/03/19 20:56 Home Med (Med Rec Complete!) ASDIRECTED XX 09/10/19 04:15 09/10/19 04:16 DC [place] Carbonate ([place] Carbonate) 300 mg TID PO 09/15/19 16:00 10/03/19 20:56 Lorazepam (Ativan) 2 mg Q4HP PRN PO ANXIETY/AGITATION 09/12/19 14:45 09/19/19 14:44 DC 09/12/19 14:51 Magnesium Hydroxide (Milk Of Magnesia) 30 ml DAILYPRN PRN PO CONSTIPATION 09/10/19 05:45 Miscellaneous (Unresolved Clarification Entry) SEE LABEL COMMENTS DAILY XX 09/26/19 09:00 09/26/19 11:16 DC Nicotine (Nicoderm Cq 21mg) 1 patch DAILY PRN TD Nicotine Withdrawal 09/10/19 05:45 Cancel Nicotine (Nicorette) 2 mg Q2HP PRN PO SMOKING CESSATION 09/10/19 10:30 10/03/19 17:38 Non-Formulary Medication ( See Comment Field Below ) SEE COMMENTS SECTION 1T@10 ID 09/23/19 10:00 09/21/19 10:40 DC Non-Formulary Medication ( See Comment Field Below ) SEE LABEL COMMENTS DAILY XX 09/21/19 09:00 Olanzapine (ZyPREXA ZYDIS) 10 mg Q4HP PRN PO ANXIETY/AGITATION 09/12/19 14:45 10/03/19 14:47 Olanzapine (ZyPREXA ZYDIS) 15 mg STAT STAT PO 09/11/19 19:05 09/11/19 19:07 DC 09/11/19 19:09 Paliperidone (Invega) 3 mg QAM PO 09/16/19 09:00 09/21/19 09:03 DC 09/21/19 08:26 Paliperidone (Invega) 3 mg QHS PO 09/10/19 21:00 09/21/19 09:02 DC 09/20/19 21:16 Paliperidone (Invega) 6 mg BID PO 09/21/19 21:00 09/23/19 09:33 DC 09/23/19 09:30 Sodium Chloride ([place] Nasal [place]) 2 spray Q2HP PRN NA NASAL DRYNESS 09/13/19 10:15 Trazodone HCl (Desyrel) 50 mg QHSP PRN PO INSOMNIA 09/10/19 05:45 10/01/19 00:33 Allergies Coded Allergies: haloperidol (Verified Allergy, Unknown, 07/06/19) RODRIGUE ARCHULETA DO Oct 04, 2019 9:16 am
[2019-10-04] MEDS: BENZTROPINE 0.5 MG TAB PO SCH ×2 (09:23→20:28)
[2019-10-04] MEDS: LITHIUM CARBONATE 300 MG CAP PO SCH ×3 (09:24→20:28)
[2019-10-04] MEDS: OLANZapine ORAL DISINTEGRATING TAB 5MG PO PRN ×2 (15:34→20:28)
[2019-10-04 16:18] VITALS: BP 115/73
[2019-10-04] MEDS: NICOTINE POLACRILEX 2 MG GUM PO PRN (19:28)
[2019-10-05 06:31] VITALS: BP 120/66
[2019-10-05] MEDS: BENZTROPINE 0.5 MG TAB PO SCH ×2 (08:13→20:09)
[2019-10-05] MEDS: LITHIUM CARBONATE 300 MG CAP PO SCH ×3 (08:13→20:08)
[2019-10-05] MEDS: **PENDING PPD ENTRY XX SCH (08:14)
[2019-10-05] MEDS: NICOTINE POLACRILEX 2 MG GUM PO PRN ×7 (09:19→22:34)
[2019-10-05] MEDS: OLANZapine ORAL DISINTEGRATING TAB 5MG PO PRN ×3 (11:19→20:09)
[2019-10-05 16:40] VITALS: BP 130/69
[2019-10-06] MEDS: NICOTINE POLACRILEX 2 MG GUM PO PRN ×7 (00:27→22:24)
[2019-10-06 06:28] VITALS: BP 126/55
--- NOTE | 2019-10-06 08:59 | MHIPNPDOC ---
[facility] Progress Note Progress Note DATE OF SERVICE: 10/06/19 HISTORY: As per Dr. Childs: "The patient a 34-year-old woman presents to [facility]. She had been released 1 month ago on an injectable anti-psychotic, however, she was found bizarre, talking to herself and was unable to engage in a meaningful interview in the ER due to her severe psychosis. She was admitted, however, when I attempt to speak with her she other than requesting discharge began to go on long diatribes about "[place] crashing" and a number of strange and bizarre delusions. She has been walking around the unit, bizarre, talking to herself and talking to empty rooms. She appears highly psychotic and very ill. She is unable to engage in a meaningful conversation about her symptoms, but appears to have decompensated significantly in her psychotic symptoms. She was also observed in the unit becoming bizarre and knocking on the window very loudly, stating that a patient had escaped when no such event had happened. The patient appears highly confused, unable to care for herself." VITAL SIGNS: See below. NEW TEST RESULTS: lithium level 87 therapeutic CURRENT MEDICATIONS: See below. MENTAL STATUS EXAMINATION: Per nursing, Pt manic, hyperverbal, delusional, tangential, religiously preoccupied, responding to internal stimuli, talk to God to the walker in her room when alone (heard in nurses' station) all day until aroud 3am last night and now currently asleep. Speech: Is regular rate, normal volume Thought processes including: tangential, disorganized Thought content: Paranoid and bizarre bahai delusions (over heard talking to god often when pt alone in her room), grandiose Description of associations: Loose, religiosity Description of abnormal or psychotic thoughts: responding to internal stimuli, AV hallucinations, talks to herself and has paranoid delusions, religiosity. Judgment: Poor. Insight: Poor. Orientation: x 3. Recent and remote memory: Intact Attention span and concentration: poor Fund of knowledge: Average Mood: "ok" Affect: less anxious, elevated, reactive, manic DIAGNOSES: Schizoaffective Disorder ASSESSMENT:Per nursing, Pt manic, hyperverbal, delusional, tangential, religiously preoccupied, responding to internal stimuli, talk to God to the walker in her room when alone (heard in nurses' station) all day until aroud 3am last night and now currently asleep. Pt seen in her room and asleep. Per nursing, pt continues to show only mild improvement in psychosis and rachelle, response to internal stimuli as was praying less over the weekend. Pt continues to be overheard later in the day in the nurses station singing and talking fluidly to herself and her brother and TLS. Appears to be tolerating prolixin with limited improvement in psychosis. Awaiting admission to [facility] for intermediate accountant treatment in near future. Per last week's note "Pt seen in her room stating that she's talks to "God" in her room when asked. Stated last week the [facility] implanted a devise in her head and that her brother is working for the [employer] and talking to her here. She is still very delusions, bizarre but less hyperverbal. States she's ok with going to [facility]. Pt is complaint on her prolixin started last week and will see if rachelle, psychosis, AH (talking and answering in a different voice herself in her room), responding to internal stimuli, religiosity talking of God and the [place] often, delusions of being ." Her insight and judgement is very poor. She is compliant on her lithium which appears to be aiding mildly her rachelle and psychosis as she is still asleep this morning. [place] level 87.0 and therapeutic. Pt continues to be hypomanic, disorganized, responding to internal stimuli and talking to self loudly, tangential and is having bizarre paranoid delusions, religiosity. Her insight remains very poor. She is compliant with her medications that she appears to be tolerating well. [facility] submitted last week for transfer to [facility] for intermediate accountant treatment as pt symptoms only show mild improvement with invega sustenna, prolixin oral, and lithium. MANAGEMENT PLAN: [facility] submitted yesterday for transfer to [facility] for detention treatment. d/c oral invega and increase prolixin for psychosis and cogentin for eps medications: prolixin 15mg bid cogentin 0.5mg bid lithium 300mg tid invega sustenna 234mg im 09/14/19 invega [id number] im 09/20/19 TIME SPENT: 30 minutes. Vital Signs Vital Signs Date Time Temp Pulse Resp B/P (MAP) Pulse Ox O2 Delivery O2 Flow Rate FiO2 10/06/19 06:28 98.2 62 16 126/55 (78) 10/02/19 06:29 Room Air Current Medications Current Medications Medications (Trade) Dose Ordered Sig/Fredis Route PRN Reason Start Time Stop Time Status Last Admin Dose Admin Acetaminophen (Tylenol Tab) 650 mg Q6HP PRN PO HEADACHE or DISCOMFORT 09/10/19 05:45 Al Hydrox/Mg Hydrox/Simethicone (Mylanta) 30 ml Q4HP PRN PO HEARTBURN/INDIGESTION 09/10/19 05:45 Benztropine Mesylate (Cogentin) 0.5 mg BID PO 09/23/19 21:00 10/05/19 20:09 Clonazepam (KlonoPIN) 2 mg Q6HP PRN PO ANXIETY 09/19/19 21:45 10/03/19 11:14 DC 09/29/19 20:44 Diphenhydramine HCl (Benadryl) 75 mg STAT STAT PO 09/11/19 21:11 09/11/19 21:14 DC 09/11/19 21:17 Fluphenazine HCl (Prolixin) 10 mg BID PO 09/23/19 21:00 09/28/19 11:23 DC 09/28/19 09:11 Fluphenazine HCl (Prolixin) 15 mg QAM PO 09/29/19 09:00 10/05/19 08:13 Fluphenazine HCl (Prolixin) 15 mg QHS PO 09/28/19 21:00 10/05/19 20:08 Home Med (Med Rec Complete!) ASDIRECTED XX 09/10/19 04:15 09/10/19 04:16 DC [place] Carbonate ([place] Carbonate) 300 mg TID PO 09/15/19 16:00 10/05/19 20:08 Lorazepam (Ativan) 2 mg Q4HP PRN PO ANXIETY/AGITATION 09/12/19 14:45 09/19/19 14:44 DC 09/12/19 14:51 Magnesium Hydroxide (Milk Of Magnesia) 30 ml DAILYPRN PRN PO CONSTIPATION 09/10/19 05:45 Miscellaneous (Unresolved Clarification Entry) SEE LABEL COMMENTS DAILY XX 09/26/19 09:00 09/26/19 11:16 DC Nicotine (Nicoderm Cq 21mg) 1 patch DAILY PRN TD Nicotine Withdrawal 09/10/19 05:45 Cancel Nicotine (Nicorette) 2 mg Q2HP PRN PO SMOKING CESSATION 09/10/19 10:30 10/06/19 00:27 Non-Formulary Medication ( See Comment Field Below ) SEE COMMENTS SECTION 1T@10 ID 09/23/19 10:00 09/21/19 10:40 DC Non-Formulary Medication ( See Comment Field Below ) SEE LABEL COMMENTS DAILY XX 09/21/19 09:00 Olanzapine (ZyPREXA ZYDIS) 10 mg Q4HP PRN PO ANXIETY/AGITATION 09/12/19 14:45 10/05/19 20:09 Olanzapine (ZyPREXA ZYDIS) 15 mg STAT STAT PO 09/11/19 19:05 09/11/19 19:07 DC 09/11/19 19:09 Paliperidone (Invega) 3 mg QAM PO 09/16/19 09:00 09/21/19 09:03 DC 09/21/19 08:26 Paliperidone (Invega) 3 mg QHS PO 09/10/19 21:00 09/21/19 09:02 DC 09/20/19 21:16 Paliperidone (Invega) 6 mg BID PO 09/21/19 21:00 09/23/19 09:33 DC 09/23/19 09:30 Sodium Chloride ([place] Nasal [place]) 2 spray Q2HP PRN NA NASAL DRYNESS 09/13/19 10:15 Trazodone HCl (Desyrel) 50 mg QHSP PRN PO INSOMNIA 09/10/19 05:45 10/01/19 00:33 Allergies Coded Allergies: haloperidol (Verified Allergy, Unknown, 07/06/19) RODRIGUE ARCHULETA DO Oct 06, 2019 8:59 am
[2019-10-06] MEDS: **PENDING PPD ENTRY XX SCH (09:00)
[2019-10-06] MEDS: BENZTROPINE 0.5 MG TAB PO SCH ×2 (09:32→20:02)
[2019-10-06] MEDS: LITHIUM CARBONATE 300 MG CAP PO SCH ×3 (09:32→20:02)
[2019-10-06] MEDS: OLANZapine ORAL DISINTEGRATING TAB 5MG PO PRN (14:11)
[2019-10-06 16:07] VITALS: BP 133/87
[2019-10-07] MEDS: NICOTINE POLACRILEX 2 MG GUM PO PRN ×7 (01:58→23:29)
[2019-10-07 06:43] VITALS: BP 117/72
[2019-10-07] MEDS: **PENDING PPD ENTRY XX SCH (09:00)
[2019-10-07] MEDS: BENZTROPINE 0.5 MG TAB PO SCH ×2 (09:12→22:00)
[2019-10-07] MEDS: LITHIUM CARBONATE 300 MG CAP PO SCH ×3 (09:12→22:00)
[2019-10-07] MEDS: OLANZapine ORAL DISINTEGRATING TAB 5MG PO PRN ×2 (12:52→16:51)
--- NOTE | 2019-10-07 14:08 | MHIPN ---
DATE: 10/07/2019 VITAL SIGNS: Temperature 97.9, pulse 69, respiration 12, blood pressure 117/72. CURRENT MEDICATIONS: - Prolixin 15 mg twice a day - Cogentin 0.5 mg twice a day - lithium 300 mg three times a day - Zyprexa 10 mg every 4 hours as needed - trazodone 50 mg at bedtime as needed HISTORY OF PRESENT ILLNESS: This 34-year-old white female with history of schizoaffective disorder is treated by Dr. Del Rio, who is out of town. Patient is seen by me today for the first time. Patient had decompensated prior to admission. Patient is quite delusional about her brother in the [employer]. She feels that there is a conspiracy run by her brother and the [employer]. She describes bizarre ideation, for example, [place] ([facility]) is sending darts at her and trying to suffocate her. She feels that there are cameras watching her every move. She feels there is a chip implanted in her ears which has GPS. She believes that she is the [place] [employer] [place]. Patient is now on the list for transfer to [facility], which is pending. MENTAL STATUS EXAMINATION: Patient is alert and oriented and fairly cooperative today. She is not agitated at this time. Her speech is quite pressured and loose. She does appear manic with racing thoughts. She is quite paranoid and grandiose. She has bizarre, delusional beliefs. Insight and judgment are quite impaired. No signs of cognitive deficits. Patient appears to be responding to internal stimuli. 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 DIAGNOSIS: Schizoaffective disorder. PLAN: Continue present management. Patient on list for transfer to [facility] for retirement care.
[2019-10-07 16:11] VITALS: BP 124/62
[2019-10-08 06:19] VITALS: BP 100/54
[2019-10-08] MEDS: **PENDING PPD ENTRY XX SCH (09:00)
[2019-10-08] MEDS: BENZTROPINE 0.5 MG TAB PO SCH ×2 (09:29→20:18)
[2019-10-08] MEDS: LITHIUM CARBONATE 300 MG CAP PO SCH ×3 (09:29→20:18)
[2019-10-08] MEDS: NICOTINE POLACRILEX 2 MG GUM PO PRN ×7 (10:00→22:23)
[2019-10-08] MEDS: OLANZapine ORAL DISINTEGRATING TAB 5MG PO PRN (10:47)
[2019-10-08 16:20] VITALS: BP 116/69
[2019-10-09 06:05] VITALS: BP 108/54
[2019-10-09] MEDS: **PENDING PPD ENTRY XX SCH (09:00)
[2019-10-09] MEDS: BENZTROPINE 0.5 MG TAB PO SCH ×2 (09:24→21:36)
[2019-10-09] MEDS: LITHIUM CARBONATE 300 MG CAP PO SCH ×3 (09:24→21:35)
[2019-10-09 16:42] VITALS: BP 120/65
[2019-10-10] MEDS: **PENDING PPD ENTRY XX SCH (09:00)
[2019-10-10] MEDS: BENZTROPINE 0.5 MG TAB PO SCH ×2 (09:25→20:50)
[2019-10-10] MEDS: LITHIUM CARBONATE 300 MG CAP PO SCH ×3 (09:25→20:50)
--- NOTE | 2019-10-10 13:16 | MHIPN ---
DATE: 10/10/2019 VITAL SIGNS: Not obtained or recorded today. CURRENT MEDICATION: Prolixin 15 mg twice a day. Cogentin 0.5 mg twice a day. [place] 300 mg three times a day. Zyprexa 10 mg every four hours as needed. HISTORY OF PRESENT ILLNESS: The patient is seen today with the medical students. The patient rambles on about her convoluted paranoid narrative. She believes that there is a conspiracy of the [facility] and the [employer] of [employer] practicing "spiritual warfare" against her. She denies that she has a psychiatric illness. She feels comfortable with the current psychotropics. She refuses any intervention. The patient's last lithium level was 3 weeks ago. She denies any side effects with her medications. MENTAL STATUS EXAMINATION: The patient is alert and oriented. She is recently cooperative. No signs of psychomotor agitation. Speech is still quite pressured, loose and tangential. She is obviously manic. Paranoia is quite prominent. She is grandiose as well. She appears to be responding to internal stimuli and auditory hallucinations. Insight and judgment remain quite impaired. No signs of cognitive deficits. ASSESSMENT: Treatment resistant psychosis diagnosis. DIAGNOSIS: Schizoaffective disorder. PLAN: Continue present management. Obtain lithium level. The patient may be a candidate for clozapine if she has not been on it in the past. MTDD
[2019-10-10] MEDS: NICOTINE POLACRILEX 2 MG GUM PO PRN ×5 (13:51→23:56)
[2019-10-10 15:18] VITALS: BP 124/66
[2019-10-10] MEDS: OLANZapine ORAL DISINTEGRATING TAB 5MG PO PRN (21:36)
[2019-10-11 06:00] VITALS: BP 101/53
[2019-10-11] MEDS: **PENDING PPD ENTRY XX SCH (09:00)
[2019-10-11] MEDS: LITHIUM CARBONATE 300 MG CAP PO SCH ×3 (10:12→20:50)
[2019-10-11] MEDS: BENZTROPINE 0.5 MG TAB PO SCH ×2 (10:13→20:51)
[2019-10-11] MEDS: NICOTINE POLACRILEX 2 MG GUM PO PRN ×5 (10:14→18:56)
--- NOTE | 2019-10-11 15:39 | MHIPN ---
DATE: 10/11/2019 VITAL SIGNS: Temperature 99.4, pulse 72, respirations 14, blood pressure 101/53. CURRENT MEDICATIONS: - Prolixin 15 mg twice a day - Cogentin 0.5 mg twice a day - lithium carbonate 300 mg three times a day - Zyprexa 10 mg every 4 hours as needed for agitation HISTORY OF PRESENT ILLNESS: The patient is again seen today with the two medical students. The patient rambles on with her usual conspiracy theories. The patient states that she is being harassed by satanic forces. She is fixated on an individual that she met at age 13. She claims that he is terrorizing her with a spiritual warfare. She was afraid that her younger son had overnight; however, she prayed and claims that she brought him back to life. THe patient feels comfortable with the psychotropics. She is looking forward to going to [facility]. The patient's behavior is reasonably appropriate on the unit with no outbursts. [place] level is ordered but was not obtained this morning. MENTAL STATUS EXAMINATION: The patient is alert, oriented, cooperative. Grooming and hygiene are fair. No signs of agitation. Speech is still quite pressured. She has obvious thought disorder. She is manic. The patient has paranoid and conspiratorial delusional belief system that is unshakeable. The patient does report auditory hallucinations. Insight and judgment remain impaired. No signs of organicity. ASSESSMENT: 1. Treatment resistant psychosis. 2. Schizoaffective disorder. PLAN: Continue present management. Repeat lithium level. The patient should be admitted to [facility] in the near future.
[2019-10-11] MEDS: OLANZapine ORAL DISINTEGRATING TAB 5MG PO PRN (16:26)
[2019-10-11 17:35] VITALS: BP 134/69
[2019-10-12 06:46] VITALS: BP 117/71
[2019-10-12] MEDS: **PENDING PPD ENTRY XX SCH (09:00)
[2019-10-12] MEDS: LITHIUM CARBONATE 300 MG CAP PO SCH ×3 (09:41→20:34)
[2019-10-12] MEDS: BENZTROPINE 0.5 MG TAB PO SCH ×2 (09:41→20:34)
[2019-10-12] MEDS: NICOTINE POLACRILEX 2 MG GUM PO PRN ×7 (10:39→23:28)
[2019-10-12 15:32] VITALS: BP 118/65
[2019-10-12] MEDS: OLANZapine ORAL DISINTEGRATING TAB 5MG PO PRN (19:08)
[2019-10-13 06:21] VITALS: BP 122/58
--- NOTE | 2019-10-13 08:29 | MHDSPDOC ---
[facility] Discharge Summary Discharge Summary DATE OF ADMISSION: Sep 10, 2019 at 05:44 DATE OF DISCHARGE: 10/13/2018 DISCHARGE DIAGNOSES: 1. Schizoaffective disorder. REASON FOR ADMISSION: The patient a 34-year-old woman with a history of schizoaffective disorder recently discharged from [facility] unit August presents again after becoming disorganized and aggressive, she has been noncompliant with her previous medications of paliperidone injection. CONSULTANTS INVOLVED: Hospitalist screening TREATMENT AND PROGRESS ON THE UNIT : The patient was admitted to the inpatient unit and subsequently restarted on her home medications, however, her psychosis did not resolve easily where she was tried on number different medications including fluphenazine and lithium as well as the previously mentioned paliperidone. She had significant difficulties resolving her psychosis still quite intense, she was noted to be praying in the group room and prior to that upon presentation had been speaking to unseen others in the empty group members while. The patient had significant difficulties with her psychosis and paranoia are so much so that she even after a protracted several week hospital stay was deemed necessary to go to a long-term psychiatric facility after a hearing was undertaken. HOSPITAL COURSE: As above DISCHARGE ASSESSMENT: 34-year-old woman with a history of schizoaffective disorder presents psychotic and disordered, she's had multiple episodes of psychosis and has had a protracted course on this admission, she's required multiple different medications that have been mildly effective at reducing her psychosis but she still remains delusional and really pretty religiously preoccupied MENTAL STATUS EXAMINATION ON DISCHARGE: Patient is a 34-year old female, who is laying in bed. Speech is slow. Language skills are intact. Thought processes including: Circumstantial. Thought content: Refuses to interact. Abstract reasoning, and computation: Impaired. Description of associations: Impaired. Description of abnormal or psychotic thoughts: Denies any suicidal or homicidal thoughts, but is pretty religiously preoccupied. Judgment: Impaired. Insight: Impaired. Orientation to alert and orientated 3. Recent and remote memory: Intact, remembers this provider. Attention span and concentration: Intact although mildly sleepy. Language: Intact. Fund of knowledge: Unable to determine due to circumstantial thought. Mood: "Fine". Affect: Flat with little reactivity. MEDICATIONS ON DISCHARGE: Fluphenazine 15 mg twice a day Calcium 300 mg 3 times a day Benztropine 0.5 mg as needed PLAN/FOLLOWUP ARRANGEMENTS: Patient will be transferred to [facility] for further long-term care. The amount of time spent in the coordination of care for this patient was approximately 60 minutes minutes. Vital Signs/I&Os Vital Signs Date Time Temp Pulse Resp B/P (MAP) Pulse Ox O2 Delivery O2 Flow Rate FiO2 10/13/19 06:21 99.6 58 18 122/58 (79) Room Air Medications No Active Prescriptions or Reported Meds Allergies Coded Allergies: haloperidol (Verified Allergy, Unknown, 07/06/19) TAMMY STARKEY DO Oct 13, 2019 08:29
[2019-10-13] MEDS: BENZTROPINE 0.5 MG TAB PO SCH (09:42)
[2019-10-13] MEDS: LITHIUM CARBONATE 300 MG CAP PO SCH (09:42)
[2019-10-13] MEDS: NICOTINE POLACRILEX 2 MG GUM PO PRN ×2 (09:42→11:48)
== END 2019-10-13 12:10 | DRG 750 ==
LOC: M ED 03:16 → M ED INP 05:44 → M PSY 09:00
PROVIDERS: ADMIT Psychiatry & Neurology Addiction Medicine; ATTEND Psychiatry & Neurology Psychiatry
DX: F25.0 Schizoaffective disorder, bipolar type (principal); F17.200 Nicotine dependence, unspecified, uncomplicated; Z88.8 Allergy status to other drugs, medicaments and biological substances; Z62.810 Personal history of physical and sexual abuse in childhood

== ENCOUNTER → 2020-03-23 | Outpatient (REF) | payer SELFPAY ==
[~2020-03-23] MED LIST changes: +BENZ0.5T23 PO; +LITH300C PO; +OLAN10TA12 PO; +POTA20TA6 PO
[2020-03-23 16:28] LABS: BASO # 0.1 10^3/uL (0.0-0.2); BASO % 1.2 % (0.0-1.0); EOS # 0.4 10^3/uL (0.0-0.5); EOS % 4.2 % (0.0-3.0); HEMATOCRIT 43.6 % (36.0-47.0); HEMOGLOBIN 13.8 g/dl (12.0-15.5); LYMPH # 2.1 10^3/uL (1.5-5.0); LYMPH % 24.1 % (24.0-44.0); MEAN CORPUSCULAR HEMOGLOBIN 29.4 pg (27.0-33.0); MEAN CORPUSCULAR HGB CONC 31.7 g/dl (32.0-36.5); MEAN CORPUSCULAR VOLUME 92.8 fl (80.0-96.0); MONO # 0.7 10^3/uL (0.0-0.8); NEUTROPHILS # 5.5 10^3/uL (1.5-8.5); NEUTROPHILS % 62.3 % (36.0-66.0); PLATELET COUNT, AUTOMATED 272 10^3/uL (150-450); WHITE BLOOD COUNT 8.9 10^3/uL (4.0-10.0)
[2020-03-23 16:50] LABS: ALBUMIN 4.1 GM/DL (3.2-5.2); BILIRUBIN,TOTAL 0.9 MG/DL (0.2-1.0); CALCIUM LEVEL 9.9 MG/DL (8.5-10.1); CHOLESTEROL RISK RATIO 4.666 (<5); CREATININE FOR GFR 1.19 MG/DL (0.55-1.30); FREE T4 1.13 NG/DL (0.76-1.46); GLOMERULAR FILTRATION RATE 55.6 (>60); LITHIUM LEVEL 1.35 MEQ/L (0.60-1.20); POTASSIUM SERUM 3.9 MEQ/L (3.5-5.1); THYROID STIMULATING HORMONE 4.4 uIU/ML (0.358-3.740); TOTAL PROTEIN 7.4 GM/DL (6.4-8.2)
[2020-03-23 17:32] LABS: HEMOGLOBIN A1c 4.8 %
== END ==
LOC: M LABDRAWC 16:10
PROVIDERS: ATTEND Nurse Practitioner Psychiatric/Mental Health
DX: Z01.89 Encounter for other specified special examinations (principal)

== ENCOUNTER → 2020-04-05 | Outpatient (REF) | payer SELFPAY ==
[2020-04-05 12:31] LABS: CHOLESTEROL RISK RATIO 3.906 (<5); FREE T4 1.25 NG/DL (0.76-1.46); LITHIUM LEVEL 1.49 MEQ/L (0.60-1.20); THYROID STIMULATING HORMONE 4.54 uIU/ML (0.358-3.740)
== END ==
LOC: M LAB REF 11:08
PROVIDERS: ATTEND Nurse Practitioner Psychiatric/Mental Health
DX: F25.9 Schizoaffective disorder, unspecified (principal)

== ENCOUNTER 2020-04-06 18:07 | Emergency (ER) | payer MEDICAID, OTHER, SELFPAY ==
[~2020-04-06] VITALS: Ht 162.6 cm; Wt 81.8 kg
[~2020-04-06 18:07] MED LIST changes: -BENZ0.5T23 PO; -LITH300C PO; -OLAN10TA12 PO; -POTA20TA6 PO
[2020-04-06] MEDS ORDERED: OLAN10TA12 PO (18:18)
[2020-04-06] MEDS ORDERED: BENZ0.5T23 PO (18:18)
[2020-04-06] MEDS ORDERED: LITH300C PO (18:18)
[2020-04-06] MEDS ORDERED: KCL 10MEQ/100ML SWI (KRUN) 10 MEQ in IV 1 EA IV ONE (18:45)
[2020-04-06] MEDS ORDERED: POTASSIUM CHLORIDE 10 MEQ SR TABLET PO ONE (19:00)
[2020-04-06] MEDS ORDERED: KCL 10MEQ/100ML SWI (KRUN) 10 MEQ in IV 1 EA IV SCH (19:00)
[2020-04-06 19:22] VITALS: BP 98/70
[2020-04-06] MEDS ORDERED: POTA20TA6 PO (19:25)
[2020-04-06 19:52] LABS: BLOOD UREA NITROGEN 2 MG/DL (7-18); CALCIUM LEVEL 9.4 MG/DL (8.5-10.1); CARBON DIOXIDE LEVEL 30 MEQ/L (21-32); CHLORIDE LEVEL 99 MEQ/L (98-107); CREATININE FOR GFR 0.98 MG/DL (0.55-1.30); GLOMERULAR FILTRATION RATE > 60.0 (>60); GLUCOSE, FASTING 126 MG/DL (70-100); POTASSIUM SERUM 3.6 MEQ/L (3.5-5.1); SODIUM LEVEL 133 MEQ/L (136-145)
--- NOTE | 2020-04-06 20:58 | ECGEPIP ---
[facility] - ED Test Date: 2020-04-06 Pat Name: ABRAHAM ARCHULETA Department: Room: - Gender: Female Vice President Business Development: GLORIA : 1985 Requested By: NATALIE WISEMAN Order Number: [id number] Reading MD: Brad Quevedo Measurements Intervals [place] Rate: 62 P: 69 ND: 150 QRS: 62 QRSD: 92 T: 55 QT: 421 QTc: 428 Interpretive Statements SINUS RHYTHM WITH SINUS ARRHYTHMIA NSTTW ABNORMALITIES SIMILAR TO 07/06/19 Electronically Signed on 04-06-2020 20:57:48 EDT by Brad Quevedo
== END 2020-04-06 19:41 | disposition home or self-care (01) ==
LOC: EDBD 18:07 → M ED 18:07
DX: E87.6 Hypokalemia (principal); Z79.899 Other long term (current) drug therapy; Z88.8 Allergy status to other drugs, medicaments and biological substances

== ENCOUNTER → 2020-04-06 | Outpatient (REF) | payer SELFPAY ==
[2020-04-06 16:28] LABS: BASO # 0.1 10^3/uL (0.0-0.2); BASO % 1.1 % (0.0-1.0); EOS # 0.4 10^3/uL (0.0-0.5); EOS % 4.5 % (0.0-3.0); HEMATOCRIT 41.4 % (36.0-47.0); HEMOGLOBIN 13.5 g/dl (12.0-15.5); LYMPH # 2.1 10^3/uL (1.5-5.0); LYMPH % 22.8 % (24.0-44.0); MEAN CORPUSCULAR HEMOGLOBIN 29.5 pg (27.0-33.0); MEAN CORPUSCULAR HGB CONC 32.6 g/dl (32.0-36.5); MEAN CORPUSCULAR VOLUME 90.4 fl (80.0-96.0); MONO # 0.7 10^3/uL (0.0-0.8); MONO % 7.7 % (0.0-5.0); NEUTROPHILS % 63.6 % (36.0-66.0); PLATELET COUNT, AUTOMATED 255 10^3/uL (150-450); RED BLOOD COUNT 4.58 10^6/uL (4.00-5.40); WHITE BLOOD COUNT 9.4 10^3/uL (4.0-10.0)
[2020-04-06 17:03] LABS: ALBUMIN 3.8 GM/DL (3.2-5.2); BILIRUBIN,TOTAL 0.8 MG/DL (0.2-1.0); CALCIUM LEVEL 9.7 MG/DL (8.5-10.1); CREATININE FOR GFR 1.2 MG/DL (0.55-1.30); FREE T4 1.11 NG/DL (0.76-1.46); GLOMERULAR FILTRATION RATE 55.1 (>60); LITHIUM LEVEL 1.17 MEQ/L (0.60-1.20); PHOSPHORUS LEVEL 3.4 MG/DL (2.5-4.9); POTASSIUM SERUM 2.9 MEQ/L (3.5-5.1); THYROID STIMULATING HORMONE 1.29 uIU/ML (0.358-3.740); TOTAL T3 138.2 NG/DL (60.0-181.0)
== END ==
LOC: M LABDRAWC 15:52
PROVIDERS: ATTEND Psychiatry & Neurology Child & Adolescent Psychiatry
DX: F25.9 Schizoaffective disorder, unspecified (principal)